=== PATIENT | male | born 1940 ===

== ENCOUNTER 2020-07-12 22:46 | Inpatient (IN) ==
[2020-07-13 09:03] LABS: Hematocrit 40.8 % (42.0-52.0); Hemoglobin 13.3 gm/dL (13.5-18.0); Mean Cell Volume 100.2 fl (78-100); Mean Corpuscular Hemoglobin 32.7 pg (27-31); Mean Corpuscular Hgb Conc 32.6 g/dl (32-36); Mean Platelet Volume 10.5 fl (8-11.3); Neutrophil # 5.9 K/mm3 (1.3-6.0); Neutrophil % 87.6 % (42-75.0); Platelet Count 159 K/mm3 (150-450); Red Blood Count 4.07 M/mm3 (4.7-6.0); White Blood Count 6.8 K/mm3 (4.0-10.5)
[2020-07-13] MEDS: ASPIRIN 81 MG TABLET.DR PO SCH (09:04)
[2020-07-13] MEDS: ENOXAPARIN SODIUM 80 MG/0.8 ML DISP.SYRIN SC SCH ×2 (09:04→19:50)
[2020-07-13] MEDS: DEXAMETHASONE SODIUM PHOSP/PF 10 MG/ML VIAL IV SCH (09:04)
[2020-07-13] MEDS: PANTOPRAZOLE SODIUM 40 MG TABLET.EC PO SCH (09:04)
[2020-07-13 09:14] LABS: Albumin * 2.4 gm/dl (3.4-5.0); Anion Gap 12.2 mmol/L (6.8-13.8); Bilirubin, Total 0.7 mg/dL (0.0-1.1); Ca. Corrected For Albumin 8.9 mg/dL (8.4-10.2); Calcium * 7.9 mg/dL (7.9-10.9); Carbon Dioxide 25.7 mmol/L (24-32.6); Potassium 3.9 mmol/L (3.4-4.6); Total Protein 6.2 gm/dL (6.2-8.2)
[2020-07-13] MEDS: ONDANSETRON HCL/PF 2 MG/ML VIAL IV PRN (15:05)
--- NOTE | 2020-07-13 18:31 | HP ---
Chief Complaint - Chief Complaint Date of Service: 07/13/20 Time of Service: 18:31 History of Present Illness: 80 year old male with 3 day hx of shortness of breath presented to the ER in [place] where he was found to have COVID [address] consistent with multifocal PNA seen with COVID 19. He has AAA hx that was examined on CT, unchanged. He was started on lovenox and decadron. He was requiring 15 L high flow O2 to maintain sats. There were no beds available in [place] so he was tx here. Rest of his lab work was unremarklable there. He was admitted to the [facility] as an inpatient. He endorses SOB, cough. He denied fevers. Medical History (Last Updated 07/12/20 @ 23:50 by Makenzie Sarabia RN) AAA (abdominal aortic aneurysm) Anemia Bacterial overgrowth syndrome Barretts esophagus Calculus of kidney Degenerative arthritis GERD (gastroesophageal reflux disease) Gout High blood pressure Obesity Osteoporosis Pure hypercholesterolemia Venous insufficiency Vitamin B12 deficiency Surgical History: Surgical History (Last Updated 07/12/20 @ 23:56 by Makenzie Sarabia RN) H/O bilateral inguinal hernia repair H/O colonoscopy with biopsies H/O umbilical hernia repair History of cholecystectomy History of esophagogastroduodenoscopy with biopsies History of vasectomy Positive lactulose breath hydrogen test S/P AAA repair using bifurcation graft S/P repair of ventral hernia Family History: Family History (Last Updated 07/12/20 @ 23:59 by Makenzie Sarabia RN) Sister Cancer Father Diabetes Mother CVA (cerebral vascular accident) Social History: (Last Updated 07/13/20 @ 00:02 by Makenzie Sarabia RN) Social History: lives independently: Yes Tobacco: Smoking Status: Former smoker Alcohol: alcohol intake: never Substance Use: substance use type: does not use Review Of Systems (GEN) - Review of Systems Generalized/Overall Review: Present: Chills. Absent: Weakness, Fever EENTM: Present: No Symptoms Reported Respiratory: Present: Cough, Shortness of Breath. Absent: Wheezing Cardiac: Present: No Symptoms Reported Abdominal: Present: No Symptoms Reported Genitourinary: Present: No Symptoms Reported Musculoskeletal: Present: No Symptoms Reported Skin: Present: No Symptoms Reported Endocrine: Present: No Symptoms Reported Allergies/Adverse Reactions: Allergies Allergy/AdvReac Type Severity Reaction Status Date / Time pneumococcal vaccine Allergy Hives Verified 07/12/20 23:36 Home Medications: HOME MEDICATIONS Allopurinol [Zyloprim] 300 mg PO DAILY 07/12/20 [Last Taken Unknown] Amlodipine Besylate 5 mg PO DAILY 07/12/20 [Last Taken Unknown] Aspirin [Aspirin EC] 81 mg PO DAILY 07/12/20 [Last Taken Unknown] Cholecalciferol (Vitamin D3) [Vitamin D3] 1,000 unit PO DAILY 07/12/20 [Last Taken Unknown] Cyanocobalamin (Vitamin B-12) [Vitamin B-12] 1,000 mcg PO DAILY 07/12/20 [Last Taken Unknown] Doxycycline Monohydrate 100 mg PO BID 07/12/20 [Last Taken Unknown] Esomeprazole Magnesium [Nexium] 40 mg PO DAILY 07/12/20 [Last Taken Unknown] Nortriptyline HCl [Pamelor] 25 mg PO PRN PRN 07/12/20 [Last Taken Unknown] Exam - Exam Vital Signs: Vital Signs - Last Taken Temp 36.7 C 07/13/20 17:43 Pulse 81 07/13/20 17:43 Resp 18 07/13/20 17:43 BP 146/73 07/13/20 17:43 Pulse Ox 92 L 07/13/20 17:43 Constitutional: Present: Alert, Oriented x3, Cooperative, Elderly ENT Exam: Present: hearing grossly normal. Absent: nasal congestion, nasal drainage Eye Exam: bilateral eye: normal inspection, EOMI Neck: Present: non-tender, supple Respiratory: Present: lungs clear, normal breath sounds, no respiratory distress Cardiovascular/Chest: Present: regular rate, rhythm, no murmur Abdomen: Present: soft, nontender, nondistended Skin Exam: Present: normal color, warm/dry Appearance: Present: appropriate appearance, appropriate insight Eye contact: Present: cooperative, good eye contact Thoughts: Present: normal thought pattern, normal mood /affect Diagnostic Studies: Abnormal Lab Results 07/13/20 07/13/20 Range/Units 08:53 08:53 RBC 4.07 L (4.7-6.0) M/mm3 Hgb 13.3 L (13.5-18.0) gm/dL Hct 40.8 L (42.0-52.0) % MCV 100.2 H (78-100) fl MCH 32.7 H (27-31) pg Immature Gran % (Auto) 1.00 H (0.001-0.429) % Immature Gran # (Auto) 0.07 H (0.000-0.0310) K/mm3 Neutrophils % 87.6 H (42-75.0) % Lymphocytes % 7.8 L (20-51) % Lymphocytes # 0.53 L (1.5-3.5) k/mm3 BUN/Creatinine Ratio 28.0 H (9.0-21.6) Random Glucose 129 H (70-110) mg/dL Alkaline Phosphatase 42 L (50-170) U/L Albumin 2.4 L (3.4-5.0) gm/dl Laboratory Results WBC 6.8 K/mm3 (4.0-10.5) 07/13/20 08:53 RBC 4.07 M/mm3 (4.7-6.0) L 07/13/20 08:53 Hgb 13.3 gm/dL (13.5-18.0) L 07/13/20 08:53 Hct 40.8 % (42.0-52.0) L 07/13/20 08:53 MCV 100.2 fl (78-100) H 07/13/20 08:53 MCH 32.7 pg (27-31) H 07/13/20 08:53 MCHC 32.6 g/dl (32-36) 07/13/20 08:53 RDW 14.0 % (11.5-14.0) 07/13/20 08:53 Plt Count 159 K/mm3 (150-450) 07/13/20 08:53 MPV 10.5 fl (8-11.3) 07/13/20 08:53 Immature Gran % (Auto) 1.00 % (0.001-0.429) H 07/13/20 08:53 Immature Gran # (Auto) 0.07 K/mm3 (0.000-0.0310) H 07/13/20 08:53 Neutrophils % 87.6 % (42-75.0) H 07/13/20 08:53 Lymphocytes % 7.8 % (20-51) L 07/13/20 08:53 Monocytes % 3.5 % (0.0-9) 07/13/20 08:53 Eosinophils % 0.0 % (0.0-3.0) 07/13/20 08:53 Basophils % 0.1 % (0.0-1.0) 07/13/20 08:53 Nucleated RBC % 0.0 k/mm3 (0-1) 07/13/20 08:53 Neutrophils # 5.9 K/mm3 (1.3-6.0) 07/13/20 08:53 Lymphocytes # 0.53 k/mm3 (1.5-3.5) L 07/13/20 08:53 Monocytes # 0.2 k/mm3 (0.0-1.0) 07/13/20 08:53 Eosinophils # 0.0 k/mm3 (0.0-0.7) 07/13/20 08:53 Absolute Basophils 0.0 k/mm3 (0.0-0.1) 07/13/20 08:53 Sodium 139 mmol/L (132-142) 07/13/20 08:53 Plasma Sodium 139 mmol/L (130-142) 07/13/20 08:53 Potassium 3.9 mmol/L (3.4-4.6) 07/13/20 08:53 Chloride 105 mmol/L (97-106) 07/13/20 08:53 Carbon Dioxide 25.7 mmol/L (24-32.6) 07/13/20 08:53 Anion Gap 12.2 mmol/L (6.8-13.8) 07/13/20 08:53 BUN 23 mg/dL (6-23) 07/13/20 08:53 Creatinine 0.82 mg/dL (0.4-1.4) 07/13/20 08:53 Est GFR (Non-Af Amer) 96 mL/min (60-130) 07/13/20 08:53 BUN/Creatinine Ratio 28.0 (9.0-21.6) H 07/13/20 08:53 Random Glucose 129 mg/dL (70-110) H 07/13/20 08:53 Calcium 7.9 mg/dL (7.9-10.9) 07/13/20 08:53 Calcium Adj for Albumin 8.9 mg/dL (8.4-10.2) 07/13/20 08:53 Total Bilirubin 0.7 mg/dL (0.0-1.1) 07/13/20 08:53 AST 33 U/L (0-48) 07/13/20 08:53 ALT 22 U/L (19-67) 07/13/20 08:53 Alkaline Phosphatase 42 U/L (50-170) L 07/13/20 08:53 Total Protein 6.2 gm/dL (6.2-8.2) 07/13/20 08:53 Albumin 2.4 gm/dl (3.4-5.0) L 07/13/20 08:53 Assessment/Plan - Narrative Narrative: Admitted to [facility] as inpatient for COVID 19 PNA. Continue decadron and lovenox. Patient currently sating well on low flow o2, being weaned. Will continue to monitor. VItals are stable and he has been afebrile. Restarted home meds. HTN and GERD stable. AAA unchanged per CT report. Repeat CBC and CMP in am. Cont current tx plan. Nurse to call with questions or concerns. - Assessment/Plan (1) COVID-19 Problem: Acute (2) AAA (abdominal aortic aneurysm) Problem: Acute (3) Hypoxia Problem: Acute (4) HTN (hypertension) Problem: Acute (5) GERD (gastroesophageal reflux disease) Problem: Acute
[2020-07-13] MEDS ORDERED: ACETAMINOPHEN 500 MG TABLET PO PRN (19:39)
[2020-07-13] MEDS: KETOROLAC TROMETHAMINE 30 MG/ML VIAL IV PRN (19:50)
[2020-07-13] MEDS ORDERED: FAMOTIDINE 20 MG TABLET PO SCH (23:45)
[2020-07-13] MEDS ORDERED: BISACODYL 5 MG TABLET.DR PO ONE (23:56)
[2020-07-14] MEDS: KETOROLAC TROMETHAMINE 30 MG/ML VIAL IV PRN (03:00)
[2020-07-14] MEDS: PANTOPRAZOLE SODIUM 40 MG TABLET.EC PO SCH (06:40)
[2020-07-14 06:46] LABS: Hematocrit 40.5 % (42.0-52.0); Hemoglobin 13.2 gm/dL (13.5-18.0); Mean Cell Volume 102.8 fl (78-100); Mean Corpuscular Hemoglobin 33.5 pg (27-31); Mean Corpuscular Hgb Conc 32.6 g/dl (32-36); Mean Platelet Volume 11.1 fl (8-11.3); Platelet Count 199 K/mm3 (150-450); Red Blood Count 3.94 M/mm3 (4.7-6.0); Red Cell Distribution Width 14.1 % (11.5-14.0); White Blood Count 12.3 K/mm3 (4.0-10.5)
[2020-07-14 06:59] LABS: Albumin * 2.3 gm/dl (3.4-5.0); Anion Gap 8.6 mmol/L (6.8-13.8); BUN/Creatinine Ratio 39.3 (9.0-21.6); Bilirubin, Total 0.6 mg/dL (0.0-1.1); Ca. Corrected For Albumin 9.3 mg/dL (8.4-10.2); Calcium * 8.3 mg/dL (7.9-10.9); Carbon Dioxide 29.3 mmol/L (24-32.6); Potassium 3.9 mmol/L (3.4-4.6)
[2020-07-14 07:05] LABS: Total Cells Counted 100
[2020-07-14 07:07] LABS: Band 1 % (0-2.0); Giant Platelets Trace; Immature Granulocyte 3 (0-1); Lymphocyte 4 % (20-51); Monocyte 3 % (0-9); Neutrophil 89 % (42-75); Neutrophil # 10.9 K/mm3 (1.3-6.0)
[2020-07-14] MEDS: ENOXAPARIN SODIUM 80 MG/0.8 ML DISP.SYRIN SC SCH ×2 (09:22→21:09)
[2020-07-14] MEDS: DEXAMETHASONE SODIUM PHOSP/PF 10 MG/ML VIAL IV SCH (09:22)
[2020-07-14] MEDS: ASPIRIN 81 MG TABLET.DR PO SCH (09:24)
[2020-07-14] MEDS: POTASSIUM CHLORIDE 20 MEQ in DEXTROSE 5%-0.5 NORMAL SALINE 990 ML IV SCH (11:23)
[2020-07-14] MEDS: BENZOCAINE/MENTHOL 16 EACH BOX MM PRN ×3 (14:35→18:33)
--- NOTE | 2020-07-14 23:42 | PN ---
Subjective - Date and Time Seen Date: 07/14/20 Time: 11:00 Subjective Narrative: Walt began having worsening abdominal pain and distension overnight, xray showed bowel obstruction vs ileus. NG was placed and confirmed by repeat imaging. NG was placed to continuous suction and removed about 700ml of brown material. He immediately felt an improvement in his symptoms. He has not urinated but does not feel the urge. Roth was removed yesterday. He reports shortness of breath is improving. He was on 15lpm last night and is down to 10lpm via high flow NC today. His mouth is dry but otherwise he is feeling better today. Objective - Vitals Vitals: Last Vital Signs Temp 36.6 C 07/14/20 21:25 Pulse 74 07/14/20 21:25 Resp 18 07/14/20 21:25 BP 134/78 07/14/20 21:25 Pulse Ox 94 07/14/20 22:15 - Abnormal Lab Findings Abnormal Lab Findings: Abnormal Lab Results 07/14/20 07/14/20 Range/Units 06:40 06:40 WBC 12.3 H D (4.0-10.5) K/mm3 RBC 3.94 L (4.7-6.0) M/mm3 Hgb 13.2 L (13.5-18.0) gm/dL Hct 40.5 L (42.0-52.0) % MCV 102.8 H (78-100) fl MCH 33.5 H (27-31) pg RDW 14.1 H (11.5-14.0) % Neutrophils % (Manual) 89 H (42-75) % Lymphocytes % (Manual) 4 L (20-51) % Immature Granulocytes 3 H (0-1) Neutrophils # (Manual) 10.9 H (1.3-6.0) K/mm3 Lymphocytes # (Manual) 0.5 L (1.5-3.5) k/mm3 BUN 48 H D (6-23) mg/dL BUN/Creatinine Ratio 39.3 H (9.0-21.6) Random Glucose 134 H (70-110) mg/dL Alkaline Phosphatase 44 L (50-170) U/L Total Protein 6.0 L (6.2-8.2) gm/dL Albumin 2.3 L (3.4-5.0) gm/dl - Exam Constitutional: Present: Alert, Oriented x3, Cooperative, No distress ENT Exam: Present: hearing grossly normal Respiratory: Present: lungs clear, normal breath sounds Cardiovascular/Chest: Present: regular rate, rhythm, no edema, no murmur Abdomen: Present: soft, tender - mild diffuse, hypoactive Extremity: Present: normal inspection, no pedal edema, normal capillary refill Skin Exam: Present: normal color, warm/dry, no cyanosis Neurologic: Present: alert, normal mood/affect, oriented x 3 Appearance: Present: appropriate appearance, appropriate insight Assessment/Plan Plan Narrative: Walt is an 80 yo male with: 1) Acute respiratory failure with hypoxia secondary to COVID-19 pneumonia. This is improved today with him being weaned from 15lpm down to 10lpm, continue to wean. 2) Small bowel obstruction. Unclear etiology, potential from decreased mobility and prior surgeries. He is feeling better after NG tube. No bowel movement since Thanksgiving. He is on IV fluids for maintenance, NPO status, continue suction with NG tube. If pain stays away and GI motility improves may clamp NG tube and advance diet. 3) Urinary retention. Starting IV fluids as he is NPO will see if this helps with urine output. He has no sensation of needing to urinate at this time. Will monitor. May need to bladder scan if still no retention. Holding off on roth unless needed. - Problems/Diagnosis (1) Acute respiratory failure due to COVID-19 Problem: Acute (2) COVID-19 Problem: Acute (3) Small bowel obstruction Problem: Acute (4) Urinary retention Problem: Acute
[2020-07-15] MEDS: POTASSIUM CHLORIDE 20 MEQ in DEXTROSE 5%-0.5 NORMAL SALINE 990 ML IV SCH ×2 (01:20→15:34)
[2020-07-15] MEDS: BENZOCAINE/MENTHOL 16 EACH BOX MM PRN ×4 (01:36→15:19)
[2020-07-15 06:28] LABS: Hematocrit 40.1 % (42.0-52.0); Hemoglobin 12.9 gm/dL (13.5-18.0); Mean Cell Volume 104.7 fl (78-100); Mean Corpuscular Hemoglobin 33.7 pg (27-31); Mean Corpuscular Hgb Conc 32.2 g/dl (32-36); Platelet Count 145 K/mm3 (150-450); Red Blood Count 3.83 M/mm3 (4.7-6.0); Red Cell Distribution Width 14.1 % (11.5-14.0); White Blood Count 11.1 K/mm3 (4.0-10.5)
[2020-07-15 06:31] LABS: Total Cells Counted 100
[2020-07-15 06:46] LABS: Albumin * 2.3 gm/dl (3.4-5.0); Anion Gap 12.9 mmol/L (6.8-13.8); BUN/Creatinine Ratio 52.4 (9.0-21.6); Bilirubin, Total 0.7 mg/dL (0.0-1.1); Ca. Corrected For Albumin 8.7 mg/dL (8.4-10.2); Calcium * 7.7 mg/dL (7.9-10.9); Carbon Dioxide 28.5 mmol/L (24-32.6); Potassium 4.4 mmol/L (3.4-4.6); Total Protein 5.7 gm/dL (6.2-8.2)
[2020-07-15 06:57] LABS: Lymphocyte 6 % (20-51); Monocyte 2 % (0-9); Neutrophil 92 % (42-75); Neutrophil # 10.2 K/mm3 (1.3-6.0)
[2020-07-15 07:01] LABS: Giant Platelets Trace; Platelet Estimate Normal (NORMAL)
[2020-07-15 07:02] LABS: Toxic Granulation Trace
[2020-07-15] MEDS: ENOXAPARIN SODIUM 80 MG/0.8 ML DISP.SYRIN SC SCH ×2 (07:57→19:49)
[2020-07-15] MEDS: PANTOPRAZOLE SODIUM 40 MG TABLET.EC PO SCH (07:57)
[2020-07-15] MEDS: DEXAMETHASONE SODIUM PHOSP/PF 10 MG/ML VIAL IV SCH (08:00)
[2020-07-15] MEDS: ASPIRIN 81 MG TABLET.DR PO SCH (08:00)
--- NOTE | 2020-07-15 17:07 | PN ---
Subjective - Date and Time Seen Date: 07/15/20 Time: 16:57 Subjective Narrative: Patient is resting comfortably in bed. NG tube still in place, set low intermittent suction. Significant gastric contents removed today be NG tube. Patient with minimal abdominal discomfort. Patient does endorse some throat pain. Otherwise denies shortness of breath though he has required an escalation of his high flow rate oxygen in order to maintain sats appropriately. Vital si gns been stable otherwise and he is afebrile. Objective - Review of Systems Generalized/Overall Review: Denies: Weakness, Chills, Fever EENTM: Reports: No Symptoms Reported Respiratory: Reports: Cough. Denies: Shortness of Breath Cardiac: Reports: No Symptoms Reported Abdominal: Reports: Nausea, Abdominal Pain, Constipation. Denies: Vomiting Genitourinary Symptoms: Reports: No Symptoms Reported. Denies: Retention Neurological: Reports: No Symptoms Reported Skin: Reports: No Symptoms Reported - Vitals Vitals: Last Vital Signs Temp 36.8 C 07/15/20 15:00 Pulse 79 07/15/20 15:00 Resp 24 H 07/15/20 15:00 BP 157/87 H 07/15/20 15:00 Pulse Ox 96 07/15/20 15:00 - Abnormal Lab Findings Abnormal Lab Findings: Abnormal Lab Results 07/15/20 07/15/20 Range/Units 06:20 06:20 WBC 11.1 H (4.0-10.5) K/mm3 RBC 3.83 L (4.7-6.0) M/mm3 Hgb 12.9 L (13.5-18.0) gm/dL Hct 40.1 L (42.0-52.0) % MCV 104.7 H (78-100) fl MCH 33.7 H (27-31) pg RDW 14.1 H (11.5-14.0) % Plt Count 145 L (150-450) K/mm3 MPV 12.0 H (8-11.3) fl Neutrophils % (Manual) 92 H (42-75) % Lymphocytes % (Manual) 6 L (20-51) % Neutrophils # (Manual) 10.2 H (1.3-6.0) K/mm3 Lymphocytes # (Manual) 0.7 L (1.5-3.5) k/mm3 Sodium 144 H (132-142) mmol/L Plasma Sodium 144 H (130-142) mmol/L Chloride 107 H (97-106) mmol/L BUN 44 H (6-23) mg/dL BUN/Creatinine Ratio 52.4 H (9.0-21.6) Calcium 7.7 L (7.9-10.9) mg/dL Alkaline Phosphatase 46 L (50-170) U/L Total Protein 5.7 L (6.2-8.2) gm/dL Albumin 2.3 L (3.4-5.0) gm/dl - Exam Constitutional: Present: Alert, Oriented x3, Cooperative, Elderly ENT Exam: Present: other - NG tube in place, flow oxygen in place Neck: Present: non-tender, supple Respiratory: Present: lungs clear, normal breath sounds, decreased breath sounds - In the bases bilaterally. Absent: rhonchi, wheezing Cardiovascular/Chest: Present: regular rate, rhythm, no murmur Abdomen: Present: soft, tender - Mildly diffusely tender. Absent: guarding, rigidity Skin Exam: Present: normal color, warm/dry Appearance: Present: appropriate appearance, appropriate insight Eye contact: Present: cooperative, good eye contact Thoughts: Present: normal thought pattern, normal mood /affect Assessment/Plan - Problems/Diagnosis (1) COVID-19 Problem: Acute Narrative: Continue with high flow oxygen, titrate to appropriate settings maintain sats greater than 92%. We will continue to monitor. Patient is on Decadron and Lovenox. Patient had a bump in his white count from admission though this likely due to the Decadron. It lower today. No reason to start on antibiotics at this time but will continue to monitor. (2) AAA (abdominal aortic aneurysm) Problem: Acute Narrative: Stable (3) Hypoxia Problem: Acute Narrative: Stable with high flow oxygen, titration and weaning orders placed (4) HTN (hypertension) Problem: Acute Narrative: Stable, no changes to treatment plan (5) GERD (gastroesophageal reflux disease) Problem: Acute (6) Small bowel obstruction Problem: Acute Narrative: Appears to be resolving with NG tube placement set to low intermittent suction. Will leave in overnight 1 more time as he still pulling out significant amount of gastric fluid though he feels much better. Tomorrow will likely clamp the tube and do trial of clears to see how he tolerates it. (7) Urinary retention Problem: Resolved Narrative: This has appeared to resolve
[2020-07-16] MEDS: POTASSIUM CHLORIDE 20 MEQ in DEXTROSE 5%-0.5 NORMAL SALINE 990 ML IV SCH ×2 (05:56→19:54)
[2020-07-16 06:38] LABS: Hematocrit 40.6 % (42.0-52.0); Hemoglobin 12.9 gm/dL (13.5-18.0); Mean Cell Volume 103.3 fl (78-100); Mean Corpuscular Hemoglobin 32.8 pg (27-31); Mean Corpuscular Hgb Conc 31.8 g/dl (32-36); Mean Platelet Volume 10.1 fl (8-11.3); Platelet Count 270 K/mm3 (150-450); Red Blood Count 3.93 M/mm3 (4.7-6.0); Red Cell Distribution Width 13.9 % (11.5-14.0); White Blood Count 10.1 K/mm3 (4.0-10.5)
[2020-07-16 06:43] LABS: Total Cells Counted 100
[2020-07-16 06:52] LABS: Albumin * 2.5 gm/dl (3.4-5.0); Anion Gap 10.6 mmol/L (6.8-13.8); BUN/Creatinine Ratio 37.1 (9.0-21.6); Bilirubin, Total 1.2 mg/dL (0.0-1.1); Ca. Corrected For Albumin 8.9 mg/dL (8.4-10.2); Carbon Dioxide 27.5 mmol/L (24-32.6); Potassium 4.1 mmol/L (3.4-4.6); Total Protein 6.5 gm/dL (6.2-8.2)
[2020-07-16] MEDS: PANTOPRAZOLE SODIUM 40 MG TABLET.EC PO SCH (07:06)
[2020-07-16 07:22] LABS: Band 1 % (0-2.0); Giant Platelets Trace; Lymphocyte 5 % (20-51); Monocyte 2 % (0-9); Neutrophil 92 % (42-75); Neutrophil # 9.3 K/mm3 (1.3-6.0); Platelet Estimate Normal (NORMAL); RBC Morphology Normal (NORMAL)
[2020-07-16] MEDS: ENOXAPARIN SODIUM 80 MG/0.8 ML DISP.SYRIN SC SCH ×2 (08:31→19:54)
[2020-07-16] MEDS: ASPIRIN 81 MG TABLET.DR PO SCH (08:32)
[2020-07-16] MEDS: DEXAMETHASONE SODIUM PHOSP/PF 10 MG/ML VIAL IV SCH (08:32)
--- NOTE | 2020-07-16 19:45 | PN ---
Subjective - Date and Time Seen Date: 07/16/20 Time: 19:45 Subjective Narrative: Patient is resting much more comfortable today. He was able to tolerate clears well and his diet was advanced. He denies abdominal pain today and states he is passing gas. He has not had a bowel movement. His vital signs are stable other than his oxygen demand. He has been afebrile. He is resting easy and states he feels like he is getting better each day. Objective - Review of Systems Generalized/Overall Review: Denies: Weakness, Chills, Fever EENTM: Reports: No Symptoms Reported Respiratory: Reports: Shortness of Breath. Denies: Cough Cardiac: Reports: No Symptoms Reported Abdominal: Reports: Constipation, Other - Denies obstipation. Denies: Nausea, Vomiting, Abdominal Pain Genitourinary Symptoms: Reports: No Symptoms Reported Neurological: Reports: No Symptoms Reported Skin: Reports: No Symptoms Reported Endocrine: Reports: No Symptoms Reported - Vitals Vitals: Last Vital Signs Temp 35.5 C L 07/16/20 19:00 Pulse 76 07/16/20 19:00 Resp 20 07/16/20 19:00 BP 148/78 07/16/20 19:00 Pulse Ox 100 07/16/20 19:00 - Abnormal Lab Findings Abnormal Lab Findings: Abnormal Lab Results 07/16/20 07/16/20 Range/Units 06:34 06:34 RBC 3.93 L (4.7-6.0) M/mm3 Hgb 12.9 L (13.5-18.0) gm/dL Hct 40.6 L (42.0-52.0) % MCV 103.3 H (78-100) fl MCH 32.8 H (27-31) pg MCHC 31.8 L (32-36) g/dl Neutrophils % (Manual) 92 H (42-75) % Lymphocytes % (Manual) 5 L (20-51) % Neutrophils # (Manual) 9.3 H (1.3-6.0) K/mm3 Lymphocytes # (Manual) 0.5 L (1.5-3.5) k/mm3 Chloride 107 H (97-106) mmol/L BUN 33 H (6-23) mg/dL BUN/Creatinine Ratio 37.1 H (9.0-21.6) Total Bilirubin 1.2 H (0.0-1.1) mg/dL Alkaline Phosphatase 49 L (50-170) U/L Albumin 2.5 L (3.4-5.0) gm/dl - Exam Constitutional: Present: Alert, Oriented x3, Cooperative, Elderly ENT Exam: Present: normal ENT inspection, hearing grossly normal Neck: Present: non-tender, supple Respiratory: Present: lungs clear, decreased breath sounds - In the bases. Absent: stridor, wheezing Cardiovascular/Chest: Present: regular rate, rhythm, no murmur Abdomen: Present: Normal bowel sounds, soft, nontender, distended - Mildly. Absent: guarding, rigidity, rebound tenderness Extremity: Present: non-tender, normal inspection, no pedal edema Skin Exam: Present: normal color, warm/dry Appearance: Present: appropriate appearance, appropriate insight Eye contact: Present: cooperative, good eye contact Thoughts: Present: normal thought pattern, normal mood /affect Assessment/Plan - Problems/Diagnosis (1) COVID-19 Problem: Acute Narrative: Continue high flow oxygen as needed, will wean to baseline as tolerated. Patient on Lovenox and Decadron. Patient stable and doing well (2) AAA (abdominal aortic aneurysm) Problem: Acute (3) Hypoxia Problem: Acute Narrative: Stable, satting well on high flow oxygen. Added John use to his treatment plan (4) HTN (hypertension) Problem: Acute Narrative: Well controlled (5) GERD (gastroesophageal reflux disease) Problem: Acute (6) Small bowel obstruction Problem: Resolved Narrative: Appears to have resolved, currently advancing diet. Patient has not a bowel movement but is passing gas and denies abdominal pain. NG tube is pulled (7) Urinary retention Problem: Resolved Narrative: Patient urinating just fine, no longer retaining.
[2020-07-17] MEDS: PANTOPRAZOLE SODIUM 40 MG TABLET.EC PO SCH (06:40)
[2020-07-17] MEDS: ENOXAPARIN SODIUM 80 MG/0.8 ML DISP.SYRIN SC SCH ×2 (09:14→21:29)
[2020-07-17] MEDS: ASPIRIN 81 MG TABLET.DR PO SCH (09:14)
[2020-07-17] MEDS: DEXAMETHASONE SODIUM PHOSP/PF 10 MG/ML VIAL IV SCH (09:15)
[2020-07-17] MEDS: POTASSIUM CHLORIDE 20 MEQ in DEXTROSE 5%-0.5 NORMAL SALINE 990 ML IV SCH (09:16)
[2020-07-17 10:11] LABS: Venous Blood Gas HCO3 24.8 mmol/L (22.0-29.0); Venous Blood Gas pH 7.4 (7.32-7.43)
--- NOTE | 2020-07-17 17:26 | PN ---
Subjective - Date and Time Seen Date: 07/17/20 Time: 17:26 Subjective Narrative: Patient states he feels well. Denies abdominal pain. Does have SOB. Vitals are stable aside from hypoxia and no acute events overnight. Still has not had a BM. Still requiring high flow o2 to maintain sats. Objective - Review of Systems Generalized/Overall Review: Denies: Weakness, Chills, Fever EENTM: Reports: No Symptoms Reported Respiratory: Reports: Shortness of Breath. Denies: Cough Cardiac: Reports: No Symptoms Reported Abdominal: Reports: Constipation, Other - passing gas. Denies: Nausea, Vomiting, Hematemesis, Abdominal Pain Genitourinary Symptoms: Reports: No Symptoms Reported Musculoskeletal Complaints: Reports: No Symptoms Reported Neurological: Reports: No Symptoms Reported Skin: Reports: No Symptoms Reported - Vitals Vitals: Last Vital Signs Temp 36.3 C 07/17/20 13:00 Pulse 90 07/17/20 13:00 Resp 20 07/17/20 13:00 BP 143/79 07/17/20 13:00 Pulse Ox 99 07/17/20 13:00 - Abnormal Lab Findings Abnormal Lab Findings: Abnormal Lab Results 07/17/20 07/17/20 Range/Units 10:04 10:04 Total CO2 26.1 H (22.0-26.0) mmol/L VBG O2 Saturation 66.3 L (94.0-98.0) % Procalcitonin Less than 0.05 L (0.05-0.50) ng/mL - Exam Constitutional: Present: Alert, Oriented x3, Cooperative, Elderly ENT Exam: Present: hearing grossly normal Neck: Present: non-tender, supple Respiratory: Present: lungs clear, decreased breath sounds - bases bilat Cardiovascular/Chest: Present: regular rate, rhythm, no murmur Abdomen: Present: soft, nontender, distended - minimal. Absent: guarding, rigidity Extremity: Absent: leg pain, pedal edema Skin Exam: Present: normal color, warm/dry Appearance: Present: appropriate appearance, appropriate insight Eye contact: Present: cooperative, good eye contact Thoughts: Present: normal thought pattern, normal mood /affect Assessment/Plan - Problems/Diagnosis (1) COVID-19 Problem: Acute Narrative: Patient on appropriate meds. Does not meet requirement for antiviral. COntinue high flow o2 to maintain sats. cont lovenox and decadron. VBG wnl. (2) AAA (abdominal aortic aneurysm) Problem: Acute (3) Hypoxia Problem: Acute (4) HTN (hypertension) Problem: Acute (5) GERD (gastroesophageal reflux disease) Problem: Acute (6) Small bowel obstruction Problem: Resolved Narrative: Repeat abd KUB shows no signs of obstruction. Passing gas. Will try enema. Labs all stable, appropriate. (7) Urinary retention Problem: Resolved
[2020-07-18] MEDS: POTASSIUM CHLORIDE 20 MEQ in DEXTROSE 5%-0.5 NORMAL SALINE 990 ML IV SCH ×2 (01:11→15:05)
[2020-07-18] MEDS: PANTOPRAZOLE SODIUM 40 MG TABLET.EC PO SCH (07:36)
[2020-07-18] MEDS: ASPIRIN 81 MG TABLET.DR PO SCH (08:57)
[2020-07-18] MEDS: ENOXAPARIN SODIUM 80 MG/0.8 ML DISP.SYRIN SC SCH ×2 (08:57→21:20)
[2020-07-18] MEDS: DEXAMETHASONE SODIUM PHOSP/PF 10 MG/ML VIAL IV SCH (08:57)
--- NOTE | 2020-07-18 17:34 | PN ---
Subjective - Date and Time Seen Date: 07/18/20 Time: 17:26 Subjective Narrative: Overall Walt feels well though he he had a decline in his respiratory status requiring CPAP to maintain sats. Patient's main issue is he is not taking deep breaths, he is not moving much. Besides his sats his vital signs been stable has been afebrile. Patient denies abdominal pain though he has not had a bowel movement yet. He has active bowel sounds. Objective - Review of Systems Generalized/Overall Review: Denies: Weakness, Chills, Fever EENTM: Reports: No Symptoms Reported Respiratory: Reports: Shortness of Breath. Denies: Cough Cardiac: Denies: Chest Pain, Edema Abdominal: Reports: Constipation, Other - Passing gas. Denies: Nausea, Vomiting, Abdominal Pain Genitourinary Symptoms: Reports: No Symptoms Reported Musculoskeletal Complaints: Reports: Back Pain Neurological: Reports: No Symptoms Reported Skin: Reports: No Symptoms Reported - Vitals Vitals: Last Vital Signs Temp 36.8 C 07/18/20 15:00 Pulse 72 07/18/20 17:10 Resp 27 H 07/18/20 17:10 BP 132/76 07/18/20 15:00 Pulse Ox 97 07/18/20 17:10 - Exam Constitutional: Present: Alert, Oriented x3, Cooperative, No distress ENT Exam: Present: hearing grossly normal. Absent: nasal congestion, nasal drainage Neck: Present: non-tender, supple Respiratory: Present: lungs clear, decreased breath sounds - Bilateral bases. Absent: rhonchi, wheezing Cardiovascular/Chest: Present: normal peripheral pulses, regular rate, rhythm, no murmur Abdomen: Present: Normal bowel sounds, soft, nontender, distended - Mildly dis tended but not uncomfortable Skin Exam: Present: normal color, warm/dry Neurologic: Present: no motor/sensory deficits, alert, oriented x 3. Absent: motor weakness Appearance: Present: appropriate appearance, appropriate insight Thoughts: Present: normal thought pattern, normal mood /affect Assessment/Plan - Problems/Diagnosis (1) COVID-19 Problem: Acute Narrative: Overall patient feels well though he is requiring CPAP currently set at 10 with 55% O2 been administered. Patient denies respiratory distress. Patient maintaining sats in the upper 90s with CPAP but when he takes it off to eat he drops into the mid 80s on high flow oxygen at 15 L. Patient is not using his John that has been ordered for which we discussed in detail again this evening. Patient is not wanting to get out of bed much due to back pain which we may need to address with pain medicine tomorrow but will order physical therapy first to see if that does not help him move more. (2) AAA (abdominal aortic aneurysm) Problem: Chronic Narrative: Stable (3) Hypoxia Problem: Acute Narrative: Resolved while on CPAP currently (4) HTN (hypertension) Problem: Acute Narrative: Well controlled, no changes (5) GERD (gastroesophageal reflux disease) Problem: Chronic (6) Small bowel obstruction Problem: Resolved (7) Urinary retention Problem: Resolved
[2020-07-19] MEDS: POTASSIUM CHLORIDE 20 MEQ in DEXTROSE 5%-0.5 NORMAL SALINE 990 ML IV SCH ×2 (05:36→19:34)
[2020-07-19] MEDS: PANTOPRAZOLE SODIUM 40 MG TABLET.EC PO SCH (06:41)
[2020-07-19] MEDS: ENOXAPARIN SODIUM 80 MG/0.8 ML DISP.SYRIN SC SCH ×2 (08:46→22:02)
[2020-07-19] MEDS: DEXAMETHASONE SODIUM PHOSP/PF 10 MG/ML VIAL IV SCH (08:46)
[2020-07-19] MEDS: ASPIRIN 81 MG TABLET.DR PO SCH (08:46)
[2020-07-19] MEDS: ONDANSETRON HCL/PF 2 MG/ML VIAL IV PRN ×2 (17:08→22:16)
--- NOTE | 2020-07-19 17:46 | PN ---
Subjective - Date and Time Seen Date: 07/19/20 Time: 17:40 Subjective Narrative: Patient's breathing much improved today. No longer on CPAP. Satting well on only 10 L of high flow oxygen much improved to 15 L he was previously on before the CPAP. His vital signs been stable otherwise and he has been afebrile. Still having some abdominal pain though he is passing gas and has normal bowel sounds. He has not had a bowel mood last 2 days but states he is chronically constipated. He has no other concerns this time. Still on a full liquid diet. Objective - Review of Systems Generalized/Overall Review: Denies: Weakness, Chills, Fever EENTM: Reports: No Symptoms Reported Respiratory: Reports: Shortness of Breath. Denies: Cough Cardiac: Reports: No Symptoms Reported Abdominal: Reports: Abdominal Pain - Mild, left lower quadrant, Constipation. Denies: Nausea, Vomiting Genitourinary Symptoms: Reports: No Symptoms Reported Musculoskeletal Complaints: Reports: Back Pain Skin: Reports: No Symptoms Reported - Vitals Vitals: Last Vital Signs Temp 36.7 C 07/19/20 14:00 Pulse 93 07/19/20 14:00 Resp 18 07/19/20 14:00 BP 132/75 07/19/20 14:00 Pulse Ox 97 07/19/20 14:00 - Exam Constitutional: Present: Alert, Oriented x3, Cooperative, Elderly ENT Exam: Present: hearing grossly normal. Absent: nasal congestion, nasal drainage Neck: Present: non-tender, supple Respiratory: Present: lungs clear, decreased breath sounds - Bilateral bases. Absent: respiratory distress, crackles, stridor Abdomen: Present: Normal bowel sounds, soft, tender - Mildly tender left lower quadrant, no rebound or guarding Skin Exam: Present: normal color, warm/dry Neurologic: Present: alert, oriented x 3 Appearance: Present: appropriate appearance, appropriate insight Eye contact: Present: cooperative, good eye contact Thoughts: Present: normal thought pattern, normal mood /affect Assessment/Plan - Problems/Diagnosis (1) COVID-19 Problem: Acute Narrative: Respiratory status improved today compared to yesterday. Hopefully his turn the corner and she continue to improve on a daily basis. Continue Decadron, continue Lovenox. We will wean him off oxygen as tolerated. (2) AAA (abdominal aortic aneurysm) Problem: Chronic (3) Hypoxia Problem: Acute Narrative: See above (4) HTN (hypertension) Problem: Acute (5) GERD (gastroesophageal reflux disease) Problem: Chronic Narrative: Acid reflux appears to be acting up today, on Nexium. Normally well controlled on this, if continues to bother him we will give him a dose of IV Protonix but will wait on this at this time. (6) Small bowel obstruction Problem: Resolved Narrative: Left lower quadrant pain, mild compared to previous obstruction pain. Patient has normal bowel sounds throughout and his stomach is not rigid. I think this is likely more constipation issues than anything else, Fleet enema ordered again. Repeat KUB of the abdomen tomorrow if he pump and still operator but I think he will be okay. (7) Urinary retention Problem: Resolved (8) Constipation Problem: Chronic Qualifiers: Constipation type: slow transit constipation Qualified Code(s): K59.01 - Slow transit constipation
[2020-07-19] MEDS ORDERED: MAGNESIUM CITRATE 300 ML BTL PO ONE (20:18)
[2020-07-19] MEDS ORDERED: MAGNESIUM CITRATE 300 ML BTL ONE (22:01)
[2020-07-19] MEDS: PROMETHAZINE HCL 25 MG TABLET PO PRN (22:02)
[2020-07-20 02:03] LABS: Hematocrit 38.8 % (42.0-52.0); Hemoglobin 12.7 gm/dL (13.5-18.0); Mean Corpuscular Hemoglobin 32.7 pg (27-31); Mean Corpuscular Hgb Conc 32.7 g/dl (32-36); Mean Platelet Volume 9.8 fl (8-11.3); Platelet Count 476 K/mm3 (150-450); Red Blood Count 3.88 M/mm3 (4.7-6.0); White Blood Count 12.6 K/mm3 (4.0-10.5)
[2020-07-20 02:09] LABS: Total Cells Counted 100
[2020-07-20 02:16] LABS: Albumin * 2.1 gm/dl (3.4-5.0); BUN/Creatinine Ratio 24.1 (9.0-21.6); Bilirubin, Total 0.9 mg/dL (0.0-1.1); Ca. Corrected For Albumin 9.4 mg/dL (8.4-10.2); Calcium * 8.2 mg/dL (7.9-10.9); Carbon Dioxide 27.2 mmol/L (24-32.6); Potassium 4.2 mmol/L (3.4-4.6); Total Protein 6.7 gm/dL (6.2-8.2)
[2020-07-20 02:32] LABS: Band 2 % (0-2.0); Immature Granulocyte 1 (0-1); Lymphocyte 3 % (20-51); Monocyte 3 % (0-9); Neutrophil 91 % (42-75); Neutrophil # 11.5 K/mm3 (1.3-6.0)
[2020-07-20 02:33] LABS: Platelet Estimate Increased (NORMAL)
[2020-07-20 02:34] LABS: Giant Platelets Trace
[2020-07-20] MEDS: ENOXAPARIN SODIUM 80 MG/0.8 ML DISP.SYRIN SC SCH ×2 (08:36→20:39)
[2020-07-20] MEDS: DEXAMETHASONE SODIUM PHOSP/PF 10 MG/ML VIAL IV SCH (08:36)
[2020-07-20] MEDS: POTASSIUM CHLORIDE 20 MEQ in DEXTROSE 5%-0.5 NORMAL SALINE 990 ML IV SCH ×2 (09:12→23:18)
[2020-07-20] MEDS: PANTOPRAZOLE SODIUM 40 MG TABLET.EC PO SCH (09:48)
[2020-07-20] MEDS: ASPIRIN 81 MG TABLET.DR PO SCH (09:48)
--- NOTE | 2020-07-20 11:30 | PN ---
Subjective - Date and Time Seen Date: 07/20/20 Time: 10:45 Subjective Narrative: Patient had difficulty overnight with significant nausea, and NG tube was placed. Nausea has improved after approximately 500 mL of gastric output. His last bowel movement was last night after an enema. He did require CPAP again when he was having more significant discomfort. When NG tube was placed this was changed to high flow, and he is oxygenating well. Objective - Review of Systems Generalized/Overall Review: Reports: Weakness Respiratory: Reports: Shortness of Breath Cardiac: Denies: Edema Abdominal: Reports: Nausea. Denies: Constipation Genitourinary Symptoms: Reports: No Symptoms Reported - Vitals Vitals: Last Vital Signs Temp 37.4 C 07/20/20 07:26 Pulse 88 07/20/20 07:26 Resp 20 07/20/20 07:26 BP 145/81 07/20/20 07:26 Pulse Ox 97 07/20/20 07:26 - Abnormal Lab Findings Abnormal Lab Findings: Abnormal Lab Results 07/20/20 07/20/20 Range/Units 01:55 01:55 WBC 12.6 H (4.0-10.5) K/mm3 RBC 3.88 L (4.7-6.0) M/mm3 Hgb 12.7 L (13.5-18.0) gm/dL Hct 38.8 L (42.0-52.0) % MCH 32.7 H (27-31) pg Plt Count 476 H (150-450) K/mm3 Neutrophils % (Manual) 91 H (42-75) % Lymphocytes % (Manual) 3 L (20-51) % Neutrophils # (Manual) 11.5 H (1.3-6.0) K/mm3 Lymphocytes # (Manual) 0.4 L (1.5-3.5) k/mm3 Platelet Estimate Increased H (NORMAL) BUN/Creatinine Ratio 24.1 H (9.0-21.6) Random Glucose 123 H (70-110) mg/dL Albumin 2.1 L (3.4-5.0) gm/dl - Exam Constitutional: Present: Alert, Cooperative, Other - Appears uncomfortable, Elderly ENT Exam: Present: other - NG tube in left nare Respiratory: Present: normal breath sounds, no accessory muscle use, other - Oxygenating in the mid 90s on 15 L via high flow Cardiovascular/Chest: Present: regular rate, rhythm Abdomen: Present: Normal bowel sounds, soft, nontender Extremity: Absent: lower extremity edema Eye contact: Present: cooperative, good eye contact Assessment/Plan - Problems/Diagnosis (1) Acute respiratory failure due to COVID-19 Problem: Acute Narrative: This is day 8 of hospitalization and day 11 of symptoms. Continue daily dexamethasone. He is still requiring significant oxygen, currently 15 L via nasal cannula. He also required CPAP overnight. Anticipate his hospitalization will continue for greater than 2 additional midnights. He is alert and able to conversate. (2) Small bowel obstruction Problem: Suspected Narrative: With his significant nausea, and improvement after placement of an NG, suspect small bowel obstruction. He has been less mobile lately. X-rays were done, though they were not upright or decubitus, so unable to use those to help with small bowel obstruction diagnosis. He is not having abdominal pain currently, his abdomen is soft, and he is passing gas. His most recent BM was last night. He still is having drainage from the NG however. When this has stopped, can clamp the NG and introduce clear liquids. We will hold his p.o. aspirin and Protonix currently, and can potentially resume tomorrow. He is tolerating ice chips currently. (3) Hypoxia Problem: Acute Narrative: We will wean oxygen as tolerated, but currently is requiring 15 L via high flow. He required CPAP as recently as last night. (4) HTN (hypertension) Problem: Acute Narrative: Blood pressure is fine, with systolic readings in the 140s and 150s. (5) AAA (abdominal aortic aneurysm) Problem: Chronic
[2020-07-21] MEDS: PANTOPRAZOLE SODIUM 40 MG TABLET.EC PO SCH (06:43)
[2020-07-21] MEDS: DEXAMETHASONE SODIUM PHOSP/PF 10 MG/ML VIAL IV SCH (09:21)
[2020-07-21] MEDS: ENOXAPARIN SODIUM 80 MG/0.8 ML DISP.SYRIN SC SCH ×2 (09:23→20:39)
[2020-07-21] MEDS: ASPIRIN 81 MG TABLET.DR PO SCH (09:26)
--- NOTE | 2020-07-21 13:46 | PN ---
Subjective - Date and Time Seen Date: 07/21/20 Time: 11:00 Subjective Narrative: Patient feels like he's slowly getting better. Using 8L via NC. Denies abdominal pain, and is passing gas. No BM in the last day and a half. He's able to stand to urinate. Objective - Review of Systems Generalized/Overall Review: Denies: Fever Respiratory: Reports: Cough, Shortness of Breath Cardiac: Denies: Chest Pain, Edema Abdominal: Denies: Nausea, Abdominal Pain Genitourinary Symptoms: Reports: No Symptoms Reported Musculoskeletal Complaints: Reports: No Symptoms Reported - Vitals Vitals: Last Vital Signs Temp 36.6 C 07/21/20 10:25 Pulse 90 07/21/20 10:25 Resp 24 H 07/21/20 10:25 BP 128/73 07/21/20 10:25 Pulse Ox 96 07/21/20 10:25 - Exam Constitutional: Present: Alert, Cooperative, Elderly Respiratory: Present: normal breath sounds, no accessory muscle use, other - using 8L via NC, oxygenating in mid 90's Cardiovascular/Chest: Present: regular rate, rhythm Abdomen: Present: soft, nontender Extremity: Absent: lower extremity edema Eye contact: Present: cooperative, good eye contact Assessment/Plan Plan Narrative: This is day 9 of hospitalization and day 12 of symptoms. Continue daily dexamethasone. His oxygen requirement has decreased from 15L via hiflo yesterday, to 8L today. He feels like he's slowly improving. NG tube placed over the evening of 07/19/20 for significant nausea. His abdomen is soft and output from the tube is decreasing, 225 cc overnight. Will clamp the tube and continue ice chips. If he tolerates this ok, will start clear liquid diet for this evening. Anticipate his hospitalization will continue for greater than 2 additional midnights. He is alert and able to conversate. - Problems/Diagnosis (1) Acute respiratory failure due to COVID-19 Problem: Acute (2) Small bowel obstruction Problem: Suspected (3) Hypoxia Problem: Acute (4) HTN (hypertension) Problem: Acute (5) AAA (abdominal aortic aneurysm) Problem: Chronic
[2020-07-21] MEDS: POTASSIUM CHLORIDE 20 MEQ in DEXTROSE 5%-0.5 NORMAL SALINE 990 ML IV SCH (15:44)
[2020-07-22] MEDS: POTASSIUM CHLORIDE 20 MEQ in DEXTROSE 5%-0.5 NORMAL SALINE 990 ML IV SCH ×2 (04:50→19:29)
[2020-07-22 06:41] LABS: Hematocrit 36.4 % (42.0-52.0); Hemoglobin 11.8 gm/dL (13.5-18.0); Mean Cell Volume 102.2 fl (78-100); Mean Corpuscular Hemoglobin 33.1 pg (27-31); Mean Corpuscular Hgb Conc 32.4 g/dl (32-36); Mean Platelet Volume 9.5 fl (8-11.3); Neutrophil # 16.8 K/mm3 (1.3-6.0); Neutrophil % 89.4 % (42-75.0); Platelet Count 467 K/mm3 (150-450); Red Blood Count 3.56 M/mm3 (4.7-6.0); Red Cell Distribution Width 13.8 % (11.5-14.0); White Blood Count 18.8 K/mm3 (4.0-10.5)
[2020-07-22] MEDS: PANTOPRAZOLE SODIUM 40 MG TABLET.EC PO SCH (06:51)
[2020-07-22] MEDS: ASPIRIN 81 MG TABLET.DR PO SCH (09:03)
[2020-07-22] MEDS: ENOXAPARIN SODIUM 80 MG/0.8 ML DISP.SYRIN SC SCH ×2 (09:03→21:10)
[2020-07-22] MEDS: DEXAMETHASONE SODIUM PHOSP/PF 10 MG/ML VIAL IV SCH (09:04)
[2020-07-22] MEDS: BENZOCAINE/MENTHOL 16 EACH BOX MM PRN (14:57)
--- NOTE | 2020-07-22 22:33 | PN ---
Subjective - Date and Time Seen Date: 07/22/20 Time: 12:18 Subjective Narrative: Patient laying comfortably in bed. Denies abdominal pain today. Mild shortness of breath (improving) though he hasn't moved much these last few days. He did have an elevated WBC this morning. Procalcitonin pending. Continues to improve with his o2 requirement. Objective - Review of Systems Generalized/Overall Review: Reports: Weakness. Denies: Chills, Fever EENTM: Reports: No Symptoms Reported Respiratory: Reports: Shortness of Breath. Denies: Cough Cardiac: Reports: No Symptoms Reported Abdominal: Reports: No Symptoms Reported, Constipation. Denies: Nausea, Vomiting Musculoskeletal Complaints: Reports: Back Pain Neurological: Reports: No Symptoms Reported Skin: Reports: No Symptoms Reported Endocrine: Reports: No Symptoms Reported - Vitals Vitals: Last Vital Signs Temp 36.6 C 07/22/20 18:24 Pulse 93 07/22/20 18:24 Resp 24 H 07/22/20 18:24 BP 134/77 07/22/20 18:24 Pulse Ox 96 07/22/20 18:24 - Abnormal Lab Findings Abnormal Lab Findings: Abnormal Lab Results 07/22/20 Range/Units 06:36 WBC 18.8 H D (4.0-10.5) K/mm3 RBC 3.56 L (4.7-6.0) M/mm3 Hgb 11.8 L (13.5-18.0) gm/dL Hct 36.4 L (42.0-52.0) % MCV 102.2 H (78-100) fl MCH 33.1 H (27-31) pg Plt Count 467 H (150-450) K/mm3 Immature Gran % (Auto) 1.60 H (0.001-0.429) % Immature Gran # (Auto) 0.30 H (0.000-0.0310) K/mm3 Neutrophils % 89.4 H (42-75.0) % Lymphocytes % 4.0 L (20-51) % Neutrophils # 16.8 H (1.3-6.0) K/mm3 Lymphocytes # 0.75 L (1.5-3.5) k/mm3 - Exam Constitutional: Present: Alert, Oriented x3, Cooperative, Elderly ENT Exam: Present: hearing grossly normal Neck: Present: non-tender, supple Respiratory: Present: lungs clear, decreased breath sounds. Absent: crackles, rhonchi Cardiovascular/Chest: Present: regular rate, rhythm, no murmur Abdomen: Present: Normal bowel sounds, soft, nontender, nondistended Skin Exam: Present: normal color, warm/dry Appearance: Present: appropriate appearance, appropriate insight Eye contact: Present: cooperative, good eye contact Thoughts: Present: normal thought pattern, normal mood /affect Assessment/Plan - Problems/Diagnosis (1) COVID-19 Problem: Acute Narrative: Appears to be improving, requiring less o2 for the last 2 days. On decadron. On lovenox. He does have an elevated WBC today, procalcitonin pending. Does not appear to be in distress, may be due to stress of the covid. Consider respiratory abx vs abdominal coverage if procalcitonin returns elevated. Also consider abdominal CT scan as he has had to mild cases of SBO over the last 10 days. Stable now though (2) AAA (abdominal aortic aneurysm) Problem: Chronic (3) Hypoxia Problem: Acute Narrative: improving (4) HTN (hypertension) Problem: Acute Narrative: stable (5) GERD (gastroesophageal reflux disease) Problem: Chronic (6) Small bowel obstruction Problem: Suspected (7) Urinary retention Problem: Resolved (8) Constipation Problem: Chronic Qualifiers: Constipation type: slow transit constipation Qualified Code(s): K59.01 - Slow transit constipation
[2020-07-23] MEDS: PANTOPRAZOLE SODIUM 40 MG TABLET.EC PO SCH (06:39)
[2020-07-23 07:41] LABS: Hematocrit 30.3 % (42.0-52.0); Hemoglobin 9.9 gm/dL (13.5-18.0); Mean Cell Volume 103.4 fl (78-100); Mean Corpuscular Hemoglobin 33.8 pg (27-31); Mean Corpuscular Hgb Conc 32.7 g/dl (32-36); Mean Platelet Volume 10.1 fl (8-11.3); Platelet Count 477 K/mm3 (150-450); Red Blood Count 2.93 M/mm3 (4.7-6.0); Red Cell Distribution Width 14.1 % (11.5-14.0); White Blood Count 28.6 K/mm3 (4.0-10.5)
[2020-07-23 07:43] LABS: Total Cells Counted 100
[2020-07-23 08:07] LABS: Band 4 % (0-2.0); Lymphocyte 4 % (20-51); Monocyte 3 % (0-9); Neutrophil 89 % (42-75); Neutrophil # 25.5 K/mm3 (1.3-6.0)
[2020-07-23 08:08] LABS: Anisocytosis 1+
[2020-07-23 08:09] LABS: Hypochromia Trace; Platelet Estimate Normal (NORMAL); Polychromasia Trace
[2020-07-23] MEDS: PANTOPRAZOLE SODIUM 40 MG in NORMAL SALINE 100 ML IV SCH ×4 (09:40→22:53)
[2020-07-23] MEDS: DEXAMETHASONE SODIUM PHOSP/PF 10 MG/ML VIAL IV SCH (10:16)
[2020-07-23] MEDS: POTASSIUM CHLORIDE 20 MEQ in DEXTROSE 5%-0.5 NORMAL SALINE 990 ML IV SCH (12:13)
[2020-07-23 12:37] LABS: Hematocrit 29.3 % (42.0-52.0); Hemoglobin 9.7 gm/dL (13.5-18.0); Mean Cell Volume 101.7 fl (78-100); Mean Corpuscular Hemoglobin 33.7 pg (27-31); Mean Corpuscular Hgb Conc 33.1 g/dl (32-36); Mean Platelet Volume 9.9 fl (8-11.3); Platelet Count 459 K/mm3 (150-450); Red Blood Count 2.88 M/mm3 (4.7-6.0); Red Cell Distribution Width 14.2 % (11.5-14.0)
[2020-07-23 12:40] LABS: White Blood Count 33.6 K/mm3 (4.0-10.5)
[2020-07-23] MEDS: metroNIDAZOLE/SODIUM CHLORIDE 500 MG/100 ML BAG IV SCH ×2 (14:41→21:28)
[2020-07-23] MEDS: CIPROFLOXACIN IN 5 % DEXTROSE 400 MG/200 ML BAG IV SCH (14:45)
[2020-07-23 16:40] LABS: Hematocrit 27.2 % (42.0-52.0); Hemoglobin 8.9 gm/dL (13.5-18.0); Mean Cell Volume 102.6 fl (78-100); Mean Corpuscular Hemoglobin 33.6 pg (27-31); Mean Corpuscular Hgb Conc 32.7 g/dl (32-36); Mean Platelet Volume 10.1 fl (8-11.3); Platelet Count 422 K/mm3 (150-450); Red Blood Count 2.65 M/mm3 (4.7-6.0); Red Cell Distribution Width 14.1 % (11.5-14.0); White Blood Count 28.5 K/mm3 (4.0-10.5)
--- NOTE | 2020-07-23 17:28 | PN ---
Subjective - Date and Time Seen Date: 07/23/20 Time: 17:11 Subjective Narrative: Walt is currently resting in bed. Frustrated by his lack of progress. Patient had two bloody bowel movements this morning. Patient's hemoglobin dropped from 11.8-9.7 today following the stools. Patient CBC also increased to 28. Procalcitonin was pending but came back in a negative range for systemic bacterial infection. Patient stable on high flow oxygen at this time. Patient is tired but otherwise states he feels okay. He denies abdominal pain but has had some nausea vomiting. He does endorse some shortness of breath with movement but states he feels fine laying there. He has minimal cough. He has been afebrile since being here. Discussed in detail patient's current condition which patient does endorse at this time to having multiple gastric ulcers in the past. Patient does not want an abdominal CT scan or to see a general surgeon right now for possible scope and wants to try conservative measures only. Discussed in detail patient's CODE STATUS, patient no longer wants compressions or any kind of electrical stimulation of the heart, only intubation and medications to be given to help if he does code. Called and spoke with the son (José) in detail regarding patient status which she was appreciative of and understanding to. Objective - Review of Systems Generalized/Overall Review: Reports: Weakness. Denies: Chills, Fever EENTM: Reports: No Symptoms Reported Respiratory: Reports: Shortness of Breath. Denies: Cough Cardiac: Denies: Chest Pain, Palpitations Abdominal: Reports: Vomiting, Hematemesis, Melena. Denies: Nausea Genitourinary Symptoms: Reports: No Symptoms Reported Neurological: Reports: Depressed. Denies: Headache Skin: Reports: No Symptoms Reported Endocrine: Reports: No Symptoms Reported - Vitals Vitals: Last Vital Signs Temp 36.6 C 07/23/20 14:52 Pulse 93 07/23/20 14:52 Resp 22 H 07/23/20 14:52 BP 116/75 07/23/20 14:52 Pulse Ox 100 07/23/20 14:52 - Abnormal Lab Findings Abnormal Lab Findings: Abnormal Lab Results 07/23/20 07/23/20 07/23/20 Range/Units 05:16 07:25 12: WBC 28.6 H D 33.6 H (4.0-10.5) K/mm3 RBC 2.93 L 2.88 L (4.7-6.0) M/mm3 Hgb 9.9 L 9.7 L (13.5-18.0) gm/dL Hct 30.3 L 29.3 L (42.0-52.0) % MCV 103.4 H 101.7 H (78-100) fl MCH 33.8 H 33.7 H (27-31) pg RDW 14.1 H 14.2 H (11.5-14.0) % Plt Count 477 H 459 H (150-450) K/mm3 Neutrophils % (Manual) 89 H (42-75) % Band Neuts % (Manual) 4 H (0-2.0) % Lymphocytes % (Manual) 4 L (20-51) % Neutrophils # (Manual) 25.5 H (1.3-6.0) K/mm3 Lymphocytes # (Manual) 1.1 L (1.5-3.5) k/mm3 Stool Occult Blood Positive H 07/23/20 Range/Units 16:20 WBC 28.5 H (4.0-10.5) K/mm3 RBC 2.65 L (4.7-6.0) M/mm3 Hgb 8.9 L (13.5-18.0) gm/dL Hct 27.2 L (42.0-52.0) % MCV 102.6 H (78-100) fl MCH 33.6 H (27-31) pg RDW 14.1 H (11.5-14.0) % Plt Count (150-450) K/mm3 Neutrophils % (Manual) (42-75) % Band Neuts % (Manual) (0-2.0) % Lymphocytes % (Manual) (20-51) % Neutrophils # (Manual) (1.3-6.0) K/mm3 Lymphocytes # (Manual) (1.5-3.5) k/mm3 Stool Occult Blood - Exam Constitutional: Present: Alert, Oriented x3, Cooperative, No distress, Elderly ENT Exam: Present: hearing grossly normal. Absent: nasal congestion, nasal drainage Neck: Present: non-tender, supple Respiratory: Present: lungs clear, no respiratory distress, no accessory muscle use Cardiovascular/Chest: Present: regular rate, rhythm, no murmur Abdomen: Present: Normal bowel sounds, soft, nontender, nondistended Skin Exam: Present: warm/dry, pallor Lymphatic: Present: no adenopathy Neurologic: Present: no motor/sensory deficits, alert, oriented x 3, depressed affect. Absent: dizzy/light-headedness Eye contact: Present: cooperative, good eye contact Thoughts: Present: normal thought pattern, normal mood /affect Assessment/Plan Plan Narrative: Patient with significant change in his clinical picture. Patient from a Covid standpoint is stable, requiring just high flow oxygen to maintain sats. We will stop Decadron as this is GI upsetting he has been on long enough where to get benefit today needed for the respiratory infection. We will also stop Lovenox due to GI bleed. Suspected upper GI bleed due to melena and hematemesis. Patient disclosed today that he has had history of gastric ulcers which is likely the source of his upper GI bleed. Started him on a Protonix drip today. Serial hemograms ordered . Stopped low-dose aspirin. Patient on clears only at this time which she is not vomiting. Patient on D5 half-normal saline at 70 mils an hour. Patient's hemoglobin continues to drop, will transfuse 2 units packed red blood cells. Platelets also elevated which is likely due to stress response. Procalcitonin came back negative for systemic bacterial infection. Prior to this returning patient was started on Flagyl and Cipro to cover GI tract infection due to severely elevated leukocytosis compared to previous day. Last white count obtained was 33.6, will repeat CBC in the morning. Patient has been afebrile, Tylenol ordered though if this does arise. Antibiotic should cover any kind of aspiration pneumonia the patient may have the patient respiratory standpoint appears to be stable and I do not think this is the cause of his elevated white count. Again GI more likely the source but patient's abdomen exam is benign. Patient changed from full code to modified full code with only intubation and medicines to be given if any arrhythmia or systole were to happen. Called and discussed this with patient's son as well who was in agreement and stated his understanding to. We will continue to monitor patient's clinical picture, nurse to call with questions or concerns. 2 hours critical care spent with patient, reviewing labs, and developing treatment plan. - Problems/Diagnosis (1) COVID-19 Problem: Acute (2) AAA (abdominal aortic aneurysm) Problem: Chronic (3) Hypoxia Problem: Acute (4) HTN (hypertension) Problem: Acute (5) GERD (gastroesophageal reflux disease) Problem: Chronic (6) Small bowel obstruction Problem: Suspected (7) Urinary retention Problem: Resolved (8) Constipation Problem: Resolved Qualifiers: Constipation type: slow transit constipation Qualified Code(s): K59.01 - Slow transit constipation (9) GI bleed Problem: Suspected
[2020-07-24] MEDS: CIPROFLOXACIN IN 5 % DEXTROSE 400 MG/200 ML BAG IV SCH ×2 (02:29→15:30)
[2020-07-24] MEDS: POTASSIUM CHLORIDE 20 MEQ in DEXTROSE 5%-0.5 NORMAL SALINE 990 ML IV SCH ×2 (02:29→21:03)
[2020-07-24] MEDS: PANTOPRAZOLE SODIUM 40 MG in NORMAL SALINE 100 ML IV SCH ×4 (03:53→20:39)
[2020-07-24] MEDS: metroNIDAZOLE/SODIUM CHLORIDE 500 MG/100 ML BAG IV SCH ×3 (05:19→23:15)
[2020-07-24 07:27] LABS: Hematocrit 28.3 % (42.0-52.0); Mean Cell Volume 104.8 fl (78-100); Mean Corpuscular Hemoglobin 33.3 pg (27-31); Mean Corpuscular Hgb Conc 31.8 g/dl (32-36); Mean Platelet Volume 10.3 fl (8-11.3); Platelet Count 422 K/mm3 (150-450); Red Cell Distribution Width 14.5 % (11.5-14.0); White Blood Count 32.9 K/mm3 (4.0-10.5)
[2020-07-24 07:30] LABS: Total Cells Counted 100
[2020-07-24 07:58] LABS: Atypical (Reactive) Lymph 1 % (0-2); Band 5 % (0-2.0); Immature Granulocyte 1 (0-1); Lymphocyte 4 % (20-51); Monocyte 5 % (0-9); Neutrophil 84 % (42-75); Neutrophil # 27.6 K/mm3 (1.3-6.0)
[2020-07-24 07:59] LABS: Platelet Estimate Normal (NORMAL)
[2020-07-24 08:00] LABS: Hypochromia Trace; Macrocytosis 2+; Polychromasia Trace
--- NOTE | 2020-07-24 17:31 | PN ---
Subjective - Date and Time Seen Date: 07/24/20 Time: 17:23 Subjective Narrative: Patient sitting in bed today comfortable but tired, does not like having the NG tube in his nose. It was restarted today due to hypoactive bowel sounds the patient denies any abdominal pain or nausea or vomiting for last 4 hours. He wants a pulled out which I think is appropriate at this time. Otherwise vital signs have been stable aside from requiring high flow nasal cannula oxygen to maintain sats. Patient not getting up and moving around out of bed much which I think is hard and his respiratory status. Patient has not had any more bloody bowel movements and his hemoglobin is stable compared to the day previously. Patient is on day 2 of telemetry strip which will be discontinued tomorrow and he will be started on IV Protonix twice daily. Objective - Review of Systems Generalized/Overall Review: Reports: Weakness. Denies: Chills, Fever EENTM: Reports: No Symptoms Reported Respiratory: Reports: Shortness of Breath. Denies: Cough Cardiac: Reports: Chest Pain, Palpitations Abdominal: Denies: Nausea, Vomiting, Hematemesis, Abdominal Pain, Melena Genitourinary Symptoms: Reports: No Symptoms Reported Musculoskeletal Complaints: Reports: Back Pain Neurological: Reports: No Symptoms Reported Skin: Reports: No Symptoms Reported Endocrine: Reports: No Symptoms Reported - Vitals Vitals: Last Vital Signs Temp 37.1 C 07/24/20 13:19 Pulse 86 07/24/20 13:19 Resp 16 07/24/20 13:19 BP 132/68 07/24/20 13:19 Pulse Ox 100 07/24/20 13:19 - Abnormal Lab Findings Abnormal Lab Findings: Abnormal Lab Results 07/24/20 Range/Units 07:19 WBC 32.9 H (4.0-10.5) K/mm3 RBC 2.70 L (4.7-6.0) M/mm3 Hgb 9.0 L (13.5-18.0) gm/dL Hct 28.3 L (42.0-52.0) % MCV 104.8 H (78-100) fl MCH 33.3 H (27-31) pg MCHC 31.8 L (32-36) g/dl RDW 14.5 H (11.5-14.0) % Neutrophils % (Manual) 84 H (42-75) % Band Neuts % (Manual) 5 H (0-2.0) % Lymphocytes % (Manual) 4 L (20-51) % Neutrophils # (Manual) 27.6 H (1.3-6.0) K/mm3 Lymphocytes # (Manual) 1.3 L (1.5-3.5) k/mm3 Monocytes # (Manual) 1.6 H (0.0-1.0) k/mm3 - Exam Constitutional: Present: Alert, Oriented x3, Somnolent, Elderly ENT Exam: Present: hearing grossly normal, muffled/hoarse voice, other - Sore inside of nostril where NG tube was placed. Absent: nasal congestion, nasal drainage Neck: Present: non-tender, supple Respiratory: Present: lungs clear, decreased breath sounds. Absent: respiratory distress Cardiovascular/Chest: Present: regular rate, rhythm, no murmur Abdomen: Present: soft, nontender, nondistended, hypoactive Skin Exam: Present: warm/dry, pallor Neurologic: Present: alert, oriented x 3. Absent: facial droop, motor weakness, sensory deficit Appearance: Present: appropriate appearance, appropriate insight Eye contact: Present: cooperative, good eye contact Thoughts: Present: normal thought pattern, normal mood /affect Assessment/Plan Plan Narrative: Patient currently resting in bed. He is tired today, feels like he is getting worn out from this process which is understandable has been here so long. From a respiratory standpoint patient is still requiring high flow oxygen to maintain sats but otherwise is stable. He has not required CPAP anymore, he is not dropping too low on his sats anymore, he denies cough. He does endorse shortness of breath at times but feels like this is improving. Because he is laying in bed so much and not getting up and moving and exercise in his lungs I think this is partially why he is not improving quicker from a respiratory standpoint but I think due to his upper GI bleed that he is just tired and needs to rest some of this likely gastric ulcer healed. Patient on day 2 of Protonix drip. This was stopped tomorrow and he will be started on IV Protonix twice daily. He is no longer on anything that should be GI upsetting. He has clear liquid diet ordered which he is tolerating ice chips. Remove the NG tube this evening as it did not allow much throughout the day (mostly iced chips). Patient's bili is nontender, nondistended, unlikely to have obstruction. He does have hypoactive bowel sounds currently is not passing gas but he does not feel the urge or need to go. After his 2 big bowel movement yesterday this is understandable. Monitoring hemoglobin, unchanged from yesterdaystable. Repeat CBC in the morning. May need to have NG tube replaced at some point in the future if he does become distended again follow-up with us if not needed. Patient again does not want CT scan of his belly, does not want general surgery consult. Patient is on Flagyl and Cipro for suspected abdominal infection, white count still elevated today but from a clinical standpoint patient does not appear to have an infection just covering our bases. We will check CHEM panel in the morning. Advance diet as tolerated. Nurse to call questions or concerns. - Problems/Diagnosis (1) COVID-19 Problem: Acute (2) AAA (abdominal aortic aneurysm) Problem: Chronic (3) Hypoxia Problem: Acute (4) HTN (hypertension) Problem: Acute (5) GERD (gastroesophageal reflux disease) Problem: Chronic (6) Small bowel obstruction Problem: Suspected (7) Urinary retention Problem: Resolved (8) Constipation Problem: Resolved Qualifiers: Constipation type: slow transit constipation Qualified Code(s): K59.01 - Slow transit constipation (9) GI bleed Problem: Suspected Qualifiers: GI bleed type/associated pathology: gastric ulcer Qualified Code(s): K25.4 - Chronic or unspecified gastric ulcer with hemorrhage
[2020-07-25] MEDS: PANTOPRAZOLE SODIUM 40 MG in NORMAL SALINE 100 ML IV SCH ×3 (00:46→21:08)
[2020-07-25] MEDS: CIPROFLOXACIN IN 5 % DEXTROSE 400 MG/200 ML BAG IV SCH ×2 (02:50→13:42)
[2020-07-25] MEDS: metroNIDAZOLE/SODIUM CHLORIDE 500 MG/100 ML BAG IV SCH ×3 (06:44→23:15)
[2020-07-25 10:35] LABS: Hematocrit 24.2 % (42.0-52.0); Mean Cell Volume 104.8 fl (78-100); Mean Corpuscular Hemoglobin 33.8 pg (27-31); Mean Corpuscular Hgb Conc 32.2 g/dl (32-36); Mean Platelet Volume 9.9 fl (8-11.3); NRBC# 0.1 k/mm3 (0-1); Neutrophil # 14.4 K/mm3 (1.3-6.0); Neutrophil % 84.8 % (42-75.0); Platelet Count 316 K/mm3 (150-450); Red Blood Count 2.31 M/mm3 (4.7-6.0); Red Cell Distribution Width 14.9 % (11.5-14.0); White Blood Count 16.9 K/mm3 (4.0-10.5)
[2020-07-25 10:45] LABS: Hemoglobin 7.8 gm/dL (13.5-18.0)
[2020-07-25 10:49] LABS: Albumin * 1.8 gm/dl (3.4-5.0); Anion Gap 7.7 mmol/L (6.8-13.8); BUN/Creatinine Ratio 34.1 (9.0-21.6); Bilirubin, Total 0.5 mg/dL (0.0-1.1); Ca. Corrected For Albumin 8.5 mg/dL (8.4-10.2); Calcium * 7.1 mg/dL (7.9-10.9); Carbon Dioxide 26.3 mmol/L (24-32.6)
[2020-07-25] MEDS: POTASSIUM CHLORIDE 20 MEQ in DEXTROSE 5%-0.5 NORMAL SALINE 990 ML IV SCH (13:20)
--- NOTE | 2020-07-25 17:14 | PN ---
Subjective - Date and Time Seen Date: 07/25/20 Time: 17:13 Subjective Narrative: He is feeling better today. No abdominal pain. No nausea or bloody bowel movements. His hemoglobin did drop from 8.9 to to 7.8. His wbc also decreased significantly. He has been afebrile while here. He is on 2 antibiotics. He is breathing the same but at least its stable even though he is still requiring high flow o2 to maintain sats. He denies cough. Still has some shortness of breath. Objective - Review of Systems Generalized/Overall Review: Reports: Weakness. Denies: Chills, Fever EENTM: Reports: No Symptoms Reported Respiratory: Reports: Shortness of Breath. Denies: Cough Cardiac: Reports: No Symptoms Reported Abdominal: Reports: No Symptoms Reported Genitourinary Symptoms: Reports: No Symptoms Reported Musculoskeletal Complaints: Reports: Back Pain Neurological: Reports: No Symptoms Reported - Vitals Vitals: Last Vital Signs Temp 36.4 C 07/25/20 14:29 Pulse 84 07/25/20 14:29 Resp 20 07/25/20 14:29 BP 121/62 07/25/20 14:29 Pulse Ox 99 07/25/20 14:29 - Abnormal Lab Findings Abnormal Lab Findings: Abnormal Lab Results 07/25/20 07/25/20 Range/Units 10:06 10:06 WBC 16.9 H D (4.0-10.5) K/mm3 RBC 2.31 L (4.7-6.0) M/mm3 Hgb 7.8 L* (13.5-18.0) gm/dL Hct 24.2 L (42.0-52.0) % MCV 104.8 H (78-100) fl MCH 33.8 H (27-31) pg RDW 14.9 H (11.5-14.0) % Immature Gran % (Auto) 2.10 H (0.001-0.429) % Immature Gran # (Auto) 0.36 H (0.000-0.0310) K/mm3 Neutrophils % 84.8 H (42-75.0) % Lymphocytes % 7.0 L (20-51) % Neutrophils # 14.4 H (1.3-6.0) K/mm3 Lymphocytes # 1.18 L (1.5-3.5) k/mm3 Chloride 108 H (97-106) mmol/L BUN 29 H (6-23) mg/dL BUN/Creatinine Ratio 34.1 H (9.0-21.6) Random Glucose 116 H (70-110) mg/dL Calcium 7.1 L (7.9-10.9) mg/dL Alkaline Phosphatase 41 L (50-170) U/L Total Protein 5.0 L (6.2-8.2) gm/dL Albumin 1.8 L (3.4-5.0) gm/dl - Exam Constitutional: Present: Alert, Oriented x3, No distress, Elderly ENT Exam: Present: hearing grossly normal Respiratory: Present: lungs clear, decreased breath sounds Cardiovascular/Chest: Present: regular rate, rhythm, no murmur Abdomen: Present: soft, nontender, nondistended, hypoactive Skin Exam: Present: warm/dry, pallor Neurologic: Present: alert, normal mood/affect, oriented x 3 Appearance: Present: appropriate appearance, appropriate insight Eye contact: Present: cooperative, good eye contact Thoughts: Present: normal thought pattern, normal mood /affect Assessment/Plan Plan Narrative: Overall he appears to have improved from yesterday though his condition is serious. He is stable from a respiratory standpoint. He will be weaned down from the oxygen as tolerated. Patient needs to get up and get moving more which I think he will once his belly starts feeling better. IV protonix drip stopped today. Chagned to IV bid dosing. NG tube was pulled yesterday and he is feeling well without. Able to tolerate clears pretty well for the first time. His WBC also decreased by almlost 50% while on flagyl and cipro. No new melanic stools or hematemesis. Repeat CBC in the am. DO to decreased hemoglobin, will consider transfusing 1-2 unit of blood in the am if he drops anymore. Heart rate and BP stable currently. Nurse to call with questions or concerns. 45 minutes critical care time spent on him today. - Problems/Diagnosis (1) COVID-19 Problem: Acute (2) AAA (abdominal aortic aneurysm) Problem: Chronic (3) Hypoxia Problem: Acute (4) HTN (hypertension) Problem: Acute (5) GERD (gastroesophageal reflux disease) Problem: Chronic (6) Small bowel obstruction Problem: Suspected (7) Urinary retention Problem: Resolved (8) Constipation Problem: Resolved Qualifiers: Constipation type: slow transit constipation Qualified Code(s): K59.01 - Slow transit constipation (9) GI bleed Problem: Suspected Qualifiers: GI bleed type/associated pathology: gastric ulcer Qualified Code(s): K25.4 - Chronic or unspecified gastric ulcer with hemorrhage
[2020-07-26] MEDS: CIPROFLOXACIN IN 5 % DEXTROSE 400 MG/200 ML BAG IV SCH ×2 (02:48→13:54)
[2020-07-26 06:43] LABS: Mean Cell Volume 104.1 fl (78-100); Mean Corpuscular Hemoglobin 33.5 pg (27-31); Mean Corpuscular Hgb Conc 32.2 g/dl (32-36); Mean Platelet Volume 9.8 fl (8-11.3); Platelet Count 220 K/mm3 (150-450); Red Blood Count 2.18 M/mm3 (4.7-6.0); Red Cell Distribution Width 15.2 % (11.5-14.0); White Blood Count 13.7 K/mm3 (4.0-10.5)
[2020-07-26] MEDS: metroNIDAZOLE/SODIUM CHLORIDE 500 MG/100 ML BAG IV SCH ×3 (07:00→22:31)
[2020-07-26] MEDS: POTASSIUM CHLORIDE 20 MEQ in DEXTROSE 5%-0.5 NORMAL SALINE 990 ML IV SCH ×2 (07:00→08:22)
[2020-07-26 07:06] LABS: Hemoglobin 7.3 gm/dL (13.5-18.0)
[2020-07-26 07:07] LABS: Hematocrit 22.7 % (42.0-52.0); Total Cells Counted 100
[2020-07-26 07:12] LABS: Immature Granulocyte 1 (0-1); Lymphocyte 7 % (20-51); Monocyte 6 % (0-9); Neutrophil 86 % (42-75); Neutrophil # 11.8 K/mm3 (1.3-6.0)
[2020-07-26 07:13] LABS: Basophilic Stippling Trace; Hypochromia Trace; Macrocytosis 2+; Platelet Estimate Normal (NORMAL); Polychromasia 1+
[2020-07-26 07:14] LABS: Giant Platelets 1+
[2020-07-26] MEDS: PANTOPRAZOLE SODIUM 40 MG in NORMAL SALINE 100 ML IV SCH ×2 (08:28→20:38)
[2020-07-26] MEDS ORDERED: FUROSEMIDE 10 MG/ML VIAL IV PRN (08:42)
[2020-07-26] MEDS ORDERED: FUROSEMIDE 10 MG/ML VIAL ONE (15:20)
--- NOTE | 2020-07-26 16:51 | PN ---
Subjective - Date and Time Seen Date: 07/26/20 Time: 16:41 Subjective Narrative: Patient today is much more conversant, much more pleasant. Patient completed therapy as directed, able to get out of bed and sit in his chair for greater than 4 hours today. Patient was more anemic this morning than yesterday, hemoglobin 7.3. Currently on his second unit of transfusion. Patient's vital signs been stable, his respiratory status is also improving. He denies abdominal pain, nausea, vomiting, or thick tarry stools. Overall significant improvement compared to previous day. Objective - Review of Systems Generalized/Overall Review: Reports: Weakness. Denies: Chills, Fever EENTM: Reports: No Symptoms Reported Respiratory: Reports: Shortness of Breath - Improving. Denies: Cough Cardiac: Reports: No Symptoms Reported Abdominal: Denies: Nausea, Vomiting, Abdominal Pain, Melena Genitourinary Symptoms: Reports: No Symptoms Reported Musculoskeletal Complaints: Reports: Back Pain Neurological: Reports: No Symptoms Reported Skin: Reports: No Symptoms Reported Endocrine: Reports: No Symptoms Reported - Vitals Vitals: Last Vital Signs Temp 36.8 C 07/26/20 15:22 Pulse 96 07/26/20 15:22 Resp 18 07/26/20 15:22 BP 127/68 07/26/20 15:22 Pulse Ox 94 07/26/20 15:22 - Abnormal Lab Findings Abnormal Lab Findings: Abnormal Lab Results 07/26/20 07/26/20 Range/Units 06:30 10:21 WBC 13.7 H (4.0-10.5) K/mm3 RBC 2.18 L (4.7-6.0) M/mm3 Hgb 7.3 L* (13.5-18.0) gm/dL Hct 22.7 L* (42.0-52.0) % MCV 104.1 H (78-100) fl MCH 33.5 H (27-31) pg RDW 15.2 H (11.5-14.0) % Neutrophils % (Manual) 86 H (42-75) % Lymphocytes % (Manual) 7 L (20-51) % Neutrophils # (Manual) 11.8 H (1.3-6.0) K/mm3 Lymphocytes # (Manual) 1.0 L (1.5-3.5) k/mm3 Crossmatch See Detail - Exam Constitutional: Present: Alert, Oriented x3, Cooperative, Elderly ENT Exam: Present: hearing grossly normal Neck: Present: non-tender, supple Respiratory: Present: lungs clear, normal breath sounds. Absent: respiratory distress Cardiovascular/Chest: Present: regular rate, rhythm, no murmur Abdomen: Present: soft, nontender, nondistended, hypoactive - Also improving Skin Exam: Present: warm/dry, pallor Neurologic: Present: alert, oriented x 3 Appearance: Present: appropriate appearance, appropriate insight Eye contact: Present: cooperative, good eye contact Thoughts: Present: normal thought pattern, normal mood /affect Assessment/Plan Plan Narrative: We will see how patient does over the weekend but if he continues to improve as he is currently doing, likely home early next week versus [facility] for physical therapy secondary to pretty severe deconditioning from his coronavirus pneumonia and GI bleed. 1 hour critical care time spent with patient today - Problems/Diagnosis (1) Blood loss anemia Problem: Acute Narrative: Patient hemoglobin continued to trend downward today, 7.8 yesterday down to 7.3 today. I think this will stabilize as patient has not had any more hematemesis or melanotic stools. Patient currently being transfused his second unit of blood. Patient did receive 10 mg IV Lasix in between. 2 hours posttransfusion hemogram ordered. Patient currently on Protonix IV twice daily dosing after completing 2 days of Protonix drip. Patient denies abdominal pain and is clinically stable from an exam standpoint. Repeat CBC in the morning. (2) GI bleed Problem: Suspected Qualifiers: GI bleed type/associated pathology: gastric ulcer Qualified Code(s): K25.4 - Chronic or unspecified gastric ulcer with hemorrhage Narrative: Concern for intra-abdominal infection secondary to GI bleed as patient's white count got up to as high as 33. Continue to trend downward after being on 2 days of Cipro Flagyl. We will continue this for another 3 days. Patient is asymptomatic otherwise. Patient's procalcitonin was negative x2. Repeat CBC in the a.m. (3) COVID-19 Problem: Acute Narrative: Much more stable today than previously. Currently on 6 L nonrebreather. Patient has been afebrile and his other vital signs are stable patient able to tolerate physical therapy today which is significant for him. Patient received 10 days of Decadron. Lovenox currently being held due to GI bleed. (4) Hypoxia Problem: Acute (5) AAA (abdominal aortic aneurysm) Problem: Chronic Narrative: Stable (6) HTN (hypertension) Problem: Acute Narrative: Well controlled (7) GERD (gastroesophageal reflux disease) Problem: Chronic (8) Small bowel obstruction Problem: Suspected (9) Urinary retention Problem: Resolved (10) Constipation Problem: Resolved Qualifiers: Constipation type: slow transit constipation Qualified Code(s): K59.01 - Slow transit constipation
[2020-07-26 21:18] LABS: Hematocrit 28.9 % (42.0-52.0); Hemoglobin 9.3 gm/dL (13.5-18.0); Mean Cell Volume 100.3 fl (78-100); Mean Corpuscular Hemoglobin 32.3 pg (27-31); Mean Corpuscular Hgb Conc 32.2 g/dl (32-36); Mean Platelet Volume 9.9 fl (8-11.3); Platelet Count 173 K/mm3 (150-450); Red Blood Count 2.88 M/mm3 (4.7-6.0); Red Cell Distribution Width 16.1 % (11.5-14.0); White Blood Count 13.1 K/mm3 (4.0-10.5)
[2020-07-27] MEDS: CIPROFLOXACIN IN 5 % DEXTROSE 400 MG/200 ML BAG IV SCH ×2 (02:28→15:34)
[2020-07-27] MEDS: POTASSIUM CHLORIDE 20 MEQ in DEXTROSE 5%-0.5 NORMAL SALINE 990 ML IV SCH ×2 (02:50→21:29)
[2020-07-27 05:27] LABS: Hematocrit 31.5 % (42.0-52.0); Hemoglobin 10.1 gm/dL (13.5-18.0); Mean Corpuscular Hemoglobin 32.4 pg (27-31); Mean Corpuscular Hgb Conc 32.1 g/dl (32-36); Mean Platelet Volume 9.6 fl (8-11.3); Platelet Count 167 K/mm3 (150-450); Red Blood Count 3.12 M/mm3 (4.7-6.0); Red Cell Distribution Width 16.5 % (11.5-14.0)
[2020-07-27 05:30] LABS: Total Cells Counted 100
[2020-07-27 05:57] LABS: Lymphocyte 7 % (20-51); Monocyte 6 % (0-9); Neutrophil 87 % (42-75); Neutrophil # 12.2 K/mm3 (1.3-6.0)
[2020-07-27 05:58] LABS: Platelet Estimate Normal (NORMAL)
[2020-07-27 06:01] LABS: Macrocytosis 1+
[2020-07-27 06:02] LABS: Polychromasia Trace
[2020-07-27] MEDS: metroNIDAZOLE/SODIUM CHLORIDE 500 MG/100 ML BAG IV SCH ×3 (06:39→22:01)
[2020-07-27] MEDS: PANTOPRAZOLE SODIUM 40 MG in NORMAL SALINE 100 ML IV SCH ×2 (08:40→20:18)
--- NOTE | 2020-07-27 13:16 | PN ---
Subjective - Date and Time Seen Date: 07/27/20 Time: 13:06 Subjective Narrative: I feel better, no abdominal pain. Objective Objective Narrative: 80-year-old male admitted for COVID-19 pneumonia and GI bleeding with subsequent anemia was evaluated at bedside and was found to be afebrile and in no acute distress. Patient appears tired during today's evaluation and is in low spirits, from what I understand this is expected given his long duration in the hospital and even worse in isolation. However he reports improvement in his breathing and he denies any abdominal pain or discomfort. There has been no recurrence of melena or other forms of GI bleeding and his hemoglobin has increased to 10 after he was transfused 2 units of PRBCs. The patient maintained stable vitals and has not had any recurrence of fever or chills. He is currently on an Oxymask which he is tolerating without any issues, with this he is maintaining oxygen saturation above 93%. Given his hypoactivity I would not keep weaning orders at this moment but just continue to monitor him. The patient also appears extremely deconditioned most likely from being in bed and not moving around much, however he is currently receiving in hospital PT. We will reevaluate him in the morning, in the meantime he is being encouraged to increase his oral intake in order to progress his diet. At the moment he continues on a liquid diet but says he has poor appetite, will continue to encourage him. - Review of Systems Generalized/Overall Review: Reports: Weakness EENTM: Reports: No Symptoms Reported Respiratory: Reports: No Symptoms Reported Cardiac: Reports: No Symptoms Reported Abdominal: Reports: Other - Poor appetite Genitourinary Symptoms: Reports: No Symptoms Reported Musculoskeletal Complaints: Reports: No Symptoms Reported Neurological: Reports: No Symptoms Reported Skin: Reports: No Symptoms Reported Endocrine: Reports: No Symptoms Reported - Vitals Vitals: Last Vital Signs Temp 36.4 C 07/27/20 11:00 Pulse 89 07/27/20 11:00 Resp 18 07/27/20 11:00 BP 134/74 07/27/20 11:00 Pulse Ox 94 07/27/20 11:00 - Abnormal Lab Findings Abnormal Lab Findings: Abnormal Lab Results 07/26/20 07/26/20 07/27/20 Range/Units 10:21 21:15 05:20 WBC 13.1 H 14.0 H (4.0-10.5) K/mm3 RBC 2.88 L 3.12 L (4.7-6.0) M/mm3 Hgb 9.3 L 10.1 L (13.5-18.0) gm/dL Hct 28.9 L 31.5 L (42.0-52.0) % MCV 100.3 H 101.0 H (78-100) fl MCH 32.3 H 32.4 H (27-31) pg RDW 16.1 H 16.5 H (11.5-14.0) % Neutrophils % (Manual) 87 H (42-75) % Lymphocytes % (Manual) 7 L (20-51) % Neutrophils # (Manual) 12.2 H (1.3-6.0) K/mm3 Lymphocytes # (Manual) 1.0 L (1.5-3.5) k/mm3 Crossmatch See Detail - Exam Constitutional: Present: Alert, Oriented x3, Cooperative, Well developed, No distress, Elderly ENT Exam: Present: normal ENT inspection, hearing grossly normal Neck: Present: non-tender, full range of motion, supple, normal inspection, trachea midline Breasts: Present: Exam deferred, Nontender Respiratory: Present: chest non-tender, lungs clear, normal breath sounds, no respiratory distress, no accessory muscle use Cardiovascular/Chest: Present: normal peripheral pulses, regular rate, rhythm, no chest tenderness, no edema, no gallop, no JVD, no murmur, no rub Abdomen: Present: Normal bowel sounds, soft, nontender, nondistended, no rebound tenderness, no hepatospenomegaly, no masses, obese /Rectal: Present: Exam deferred Extremity: Present: normal range of motion, non-tender, normal inspection, no pedal edema, no calf tenderness, normal capillary refill Skin Exam: Present: normal color, warm/dry, no cyanosis Lymphatic: Present: no adenopathy Neurologic: Present: line palletizer II-XII nml as tested, no motor/sensory deficits, alert, normal mood/affect, oriented x 3 Appearance: Present: appropriate appearance, appropriate insight, neat, no memory impairment Eye contact: Present: cooperative, good eye contact, normal speech Thoughts: Present: normal thought pattern, no apparent hallucination Assessment/Plan Plan Narrative: We will continue current management and repeat labs in the morning for reevaluation. If patient tolerates his clear liquid diet we will progress the diet to see how he tolerates soft food and solids. - Problems/Diagnosis (1) COVID-19 Problem: Acute (2) AAA (abdominal aortic aneurysm) Problem: Chronic (3) Hypoxia Problem: Resolved (4) HTN (hypertension) Problem: Chronic (5) GERD (gastroesophageal reflux disease) Problem: Chronic (6) GI bleed Problem: Suspected Qualifiers: GI bleed type/associated pathology: gastric ulcer Qualified Code(s): K25.4 - Chronic or unspecified gastric ulcer with hemorrhage (7) Blood loss anemia Problem: Acute (8) Physical deconditioning Problem: Acute (9) Generalized weakness Problem: Acute
[2020-07-28] MEDS: CIPROFLOXACIN IN 5 % DEXTROSE 400 MG/200 ML BAG IV SCH ×2 (02:40→13:26)
[2020-07-28] MEDS: metroNIDAZOLE/SODIUM CHLORIDE 500 MG/100 ML BAG IV SCH ×3 (06:39→22:23)
[2020-07-28 07:14] LABS: Hematocrit 29.7 % (42.0-52.0); Hemoglobin 9.6 gm/dL (13.5-18.0); Mean Cell Volume 100.3 fl (78-100); Mean Corpuscular Hemoglobin 32.4 pg (27-31); Mean Corpuscular Hgb Conc 32.3 g/dl (32-36); Mean Platelet Volume 10.2 fl (8-11.3); Platelet Count 122 K/mm3 (150-450); Red Blood Count 2.96 M/mm3 (4.7-6.0); Red Cell Distribution Width 16.7 % (11.5-14.0); White Blood Count 12.1 K/mm3 (4.0-10.5)
[2020-07-28 07:17] LABS: Total Cells Counted 100
[2020-07-28 07:25] LABS: Albumin * 1.7 gm/dl (3.4-5.0); BUN/Creatinine Ratio 17.5 (9.0-21.6); Bilirubin, Total 0.6 mg/dL (0.0-1.1); Ca. Corrected For Albumin 8.5 mg/dL (8.4-10.2); Carbon Dioxide 26.9 mmol/L (24-32.6); Potassium 3.9 mmol/L (3.4-4.6)
[2020-07-28 08:27] LABS: Band 3 % (0-2.0); Basophil 1 % (0-1); Eosinophil 1 % (0-3); Lymphocyte 6 % (20-51); Monocyte 7 % (0-9); Neutrophil 82 % (42-75); Neutrophil # 9.9 K/mm3 (1.3-6.0)
[2020-07-28 08:28] LABS: Platelet Estimate Normal (NORMAL); RBC Morphology Normal (NORMAL)
[2020-07-28] MEDS: PANTOPRAZOLE SODIUM 40 MG in NORMAL SALINE 100 ML IV SCH ×2 (09:18→20:40)
[2020-07-28] MEDS: POTASSIUM CHLORIDE 20 MEQ in DEXTROSE 5%-0.5 NORMAL SALINE 990 ML IV SCH (09:19)
--- NOTE | 2020-07-28 14:43 | PN ---
Subjective - Date and Time Seen Date: 07/28/20 Time: 14:34 Subjective Narrative: I feel better, no abdominal pain but still do not have an appetite. Objective Objective Narrative: 80-year-old occasion male admitted for COVID-19 pneumonia, generalized weakness, respiratory failure, hypoxia, hemorrhagic anemia, and GI bleeding was evaluated at bedside was found to be afebrile and in no acute distress. Patient denies any abdominal pain this morning but still has not been eating much, he reports just not having an appetite. I suspect this is due to fear of recurrence of his GI bleeding, so during the bedside evaluation he was encouraged to increase his oral intake in order to be able to progress his diet. Yesterday we made a failed attempt to wean him down to his baseline oxygen however the patient desatted when he got up to use the bedside commode, oxygen saturation dropped down to the mid 80s therefore we had to increase his oxygen back to where it was . This morning he is on oxygen mask requiring 6 L which is still more than his baseline but I instructed the nurse to attempt once again to wean him down, will see how he tolerates this. Physical exam did not reveal anything new but I will note that the patient's deconditioning continues to be a significant issue. He hardly moves except to use the bedside commode and appears to be depressed. After such a long hospitalization this is to be expected, I am hopeful that he will leave soon to start some type of rehabilitation once he improves. Labs this morning showed stabilization of his hemoglobin and his white count continues to trend down with a dual antibiotics he is receiving, this is all clinical progress and very encouraging we are hopeful that the patient will recuperate without any major issues from his illness. - Review of Systems Generalized/Overall Review: Reports: Weakness EENTM: Reports: No Symptoms Reported Respiratory: Reports: Shortness of Breath Cardiac: Reports: No Symptoms Reported Abdominal: Reports: Other - Poor appetite Genitourinary Symptoms: Reports: No Symptoms Reported Musculoskeletal Complaints: Reports: No Symptoms Reported Neurological: Reports: No Symptoms Reported Skin: Reports: No Symptoms Reported Endocrine: Reports: No Symptoms Reported - Vitals Vitals: Last Vital Signs Temp 36.5 C 07/28/20 10:00 Pulse 90 07/28/20 10:00 Resp 16 07/28/20 10:00 BP 138/76 07/28/20 10:00 Pulse Ox 98 07/28/20 10:00 - Abnormal Lab Findings Abnormal Lab Findings: Abnormal Lab Results 07/28/20 07/28/20 Range/Units 06:40 06:40 WBC 12.1 H (4.0-10.5) K/mm3 RBC 2.96 L (4.7-6.0) M/mm3 Hgb 9.6 L (13.5-18.0) gm/dL Hct 29.7 L (42.0-52.0) % MCV 100.3 H (78-100) fl MCH 32.4 H (27-31) pg RDW 16.7 H (11.5-14.0) % Plt Count 122 L (150-450) K/mm3 Neutrophils % (Manual) 82 H (42-75) % Band Neuts % (Manual) 3 H (0-2.0) % Lymphocytes % (Manual) 6 L (20-51) % Neutrophils # (Manual) 9.9 H (1.3-6.0) K/mm3 Lymphocytes # (Manual) 0.7 L (1.5-3.5) k/mm3 Anion Gap 6.0 L (6.8-13.8) mmol/L Random Glucose 114 H (70-110) mg/dL Calcium 7.0 L (7.9-10.9) mg/dL Alkaline Phosphatase 39 L (50-170) U/L Total Protein 5.0 L (6.2-8.2) gm/dL Albumin 1.7 L (3.4-5.0) gm/dl - Exam Constitutional: Present: Alert, Oriented x3, Cooperative, Well developed, Well nourished, No distress, Elderly ENT Exam: Present: normal ENT inspection, hard of hearing Neck: Present: non-tender, full range of motion, supple, normal inspection, trachea midline Breasts: Present: Exam deferred, Nontender Respiratory: Present: no respiratory distress, no accessory muscle use, decreased breath sounds Cardiovascular/Chest: Present: normal peripheral pulses, regular rate, rhythm, no chest tenderness, no edema, no gallop, no JVD, no murmur, no rub Abdomen: Present: Normal bowel sounds, soft, nontender, nondistended, no rebound tenderness, no hepatospenomegaly, no masses /Rectal: Present: Exam deferred Extremity: Present: normal range of motion, non-tender, normal inspection, no pedal edema, no calf tenderness, normal capillary refill, pelvis stable Skin Exam: Present: normal color, warm/dry, no cyanosis Lymphatic: Present: no adenopathy Neurologic: Present: no motor/sensory deficits, alert, oriented x 3 Appearance: Present: appropriate appearance, appropriate insight, neat Eye contact: Present: cooperative, good eye contact, normal speech Thoughts: Present: normal thought pattern, no apparent hallucination Assessment/Plan Plan Narrative: We will see how the patient tolerates an attempt at weaning his oxygen. Repeat labs will be ordered for tomorrow morning for reevaluation of hemoglobin, electrolytes, and WBCs. - Problems/Diagnosis (1) COVID-19 Problem: Acute (2) AAA (abdominal aortic aneurysm) Problem: Chronic (3) Hypoxia Problem: Resolved (4) HTN (hypertension) Problem: Chronic (5) GERD (gastroesophageal reflux disease) Problem: Chronic (6) GI bleed Problem: Suspected Qualifiers: GI bleed type/associated pathology: gastric ulcer Qualified Code(s): K25.4 - Chronic or unspecified gastric ulcer with hemorrhage (7) Blood loss anemia Problem: Acute (8) Physical deconditioning Problem: Acute (9) Generalized weakness Problem: Acute (10) Poor appetite Problem: Acute
[2020-07-29] MEDS: CIPROFLOXACIN IN 5 % DEXTROSE 400 MG/200 ML BAG IV SCH ×2 (02:01→13:51)
[2020-07-29] MEDS: POTASSIUM CHLORIDE 20 MEQ in DEXTROSE 5%-0.5 NORMAL SALINE 990 ML IV SCH ×3 (05:25→23:31)
[2020-07-29] MEDS: metroNIDAZOLE/SODIUM CHLORIDE 500 MG/100 ML BAG IV SCH ×2 (06:34→15:17)
[2020-07-29 07:00] LABS: Hematocrit 31.5 % (42.0-52.0); Mean Cell Volume 101.3 fl (78-100); Mean Corpuscular Hemoglobin 32.2 pg (27-31); Mean Corpuscular Hgb Conc 31.7 g/dl (32-36); Mean Platelet Volume 10.7 fl (8-11.3); Platelet Count 112 K/mm3 (150-450); Red Blood Count 3.11 M/mm3 (4.7-6.0); Red Cell Distribution Width 16.7 % (11.5-14.0); White Blood Count 10.6 K/mm3 (4.0-10.5)
[2020-07-29 07:02] LABS: Total Cells Counted 100
[2020-07-29 07:14] LABS: Albumin * 1.7 gm/dl (3.4-5.0); Anion Gap 7.8 mmol/L (6.8-13.8); BUN/Creatinine Ratio 14.8 (9.0-21.6); Bilirubin, Total 0.6 mg/dL (0.0-1.1); Ca. Corrected For Albumin 8.6 mg/dL (8.4-10.2); Calcium * 7.1 mg/dL (7.9-10.9); Carbon Dioxide 28.3 mmol/L (24-32.6); Potassium 4.1 mmol/L (3.4-4.6); Total Protein 5.2 gm/dL (6.2-8.2)
[2020-07-29 07:33] LABS: Band 2 % (0-2.0); Lymphocyte 6 % (20-51); Monocyte 4 % (0-9); Neutrophil 88 % (42-75); Neutrophil # 9.3 K/mm3 (1.3-6.0)
[2020-07-29 07:37] LABS: Anisocytosis 2+; Polychromasia 1+
[2020-07-29 07:38] LABS: Hypersegmented Polys 1+; Platelet Estimate Normal (NORMAL)
[2020-07-29] MEDS: PANTOPRAZOLE SODIUM 40 MG in NORMAL SALINE 100 ML IV SCH ×2 (08:49→21:04)
[2020-07-29] MEDS: ONDANSETRON HCL/PF 2 MG/ML VIAL IV PRN ×3 (12:11→20:44)
[2020-07-29] MEDS: PROMETHAZINE HCL 25 MG TABLET PO PRN (16:24)
--- NOTE | 2020-07-29 17:24 | PN ---
Subjective - Date and Time Seen Date: 07/29/20 Time: 17:24 Subjective Narrative: Patient does not feel well today, has been nauseated and has small bouts of emesis (nonbloody). Has had poor appetite. No bowel movements for the last few days though is passing gas. His abdomen is slightly distended and mildly tender to the touch diffusely. From a respiratory standpoint patient continues to improve, currently on 4 L nasal cannula which is the best he has been out since has been here. He denies cough but does have some shortness of breath with activity. Blood work significant improved, white count down to 10.6. This is day 7 of antibiotics which will be stopped. Rest of his lab work appropriate. Aside from requiring 4 L nasal cannula his other vital signs are stable. He is frustrated with how he is progressing. Still not want to see general surgery or have a CT scan of his belly at this time. No further bloody stools or hematemesis since Protonix drip and then began on IV Protonix twice daily. Denies abdominal pain in general. Objective - Review of Systems Generalized/Overall Review: Reports: Weakness. Denies: Chills, Fever EENTM: Reports: No Symptoms Reported Respiratory: Reports: Shortness of Breath. Denies: Cough Cardiac: Denies: No Symptoms Reported Abdominal: Reports: Nausea, Vomiting, Abdominal Pain - minimal Genitourinary Symptoms: Reports: No Symptoms Reported Musculoskeletal Complaints: Reports: Back Pain Neurological: Reports: No Symptoms Reported Skin: Reports: No Symptoms Reported Endocrine: Reports: No Symptoms Reported - Vitals Vitals: Last Vital Signs Temp 36.5 C 07/29/20 15:13 Pulse 93 07/29/20 15:13 Resp 17 07/29/20 15:13 BP 138/80 07/29/20 15:13 Pulse Ox 97 07/29/20 15:13 - Abnormal Lab Findings Abnormal Lab Findings: Abnormal Lab Results 07/29/20 07/29/20 Range/Units 06:45 06:45 WBC 10.6 H (4.0-10.5) K/mm3 RBC 3.11 L (4.7-6.0) M/mm3 Hgb 10.0 L (13.5-18.0) gm/dL Hct 31.5 L (42.0-52.0) % MCV 101.3 H (78-100) fl MCH 32.2 H (27-31) pg MCHC 31.7 L (32-36) g/dl RDW 16.7 H (11.5-14.0) % Plt Count 112 L (150-450) K/mm3 Neutrophils % (Manual) 88 H (42-75) % Lymphocytes % (Manual) 6 L (20-51) % Neutrophils # (Manual) 9.3 H (1.3-6.0) K/mm3 Lymphocytes # (Manual) 0.6 L (1.5-3.5) k/mm3 Random Glucose 119 H (70-110) mg/dL Calcium 7.1 L (7.9-10.9) mg/dL Alkaline Phosphatase 40 L (50-170) U/L Total Protein 5.2 L (6.2-8.2) gm/dL Albumin 1.7 L (3.4-5.0) gm/dl - Exam Constitutional: Present: Alert, Oriented x3, Mild distress - nausea Respiratory: Present: lungs clear, normal breath sounds Cardiovascular/Chest: Present: regular rate, rhythm, no murmur Abdomen: Present: nontender, hypoactive. Absent: nondistended - mildly distended again, guarding, rigidity Skin Exam: Present: normal color, warm/dry Appearance: Present: appropriate appearance, appropriate insight Eye contact: Present: cooperative Thoughts: Present: normal thought pattern Assessment/Plan Plan Narrative: #1 Covidstabilizing. No longer on Decadron or Lovenox. No longer requiring high flow oxygen to maintain sats. Breathing easier, lung exam also improved. Overall for breathing standpoint patient states he feels much better. He has been afebrile. Hypoxia has resolved with oxygen via nasal cannula. #2 GI bleed, blood loss anemiahemoglobin stabilized at 10 for the last 4 days after receiving 2 units transfusion packed red blood cells. No longer having bloody bowel movements or hematemesis. Patient was on antibiotics for suspected abdominal infection following his GI bleed when he had an elevated white count at 33, this is trended down to 10.6 today. Antibiotics are being discontinued today. Patient's vital signs been stable has been afebrile since being here aside from the oxygen requirements. #3 suspected small bowel obstructionunsure if he has this. Patient does not want to scope, patient does not want CT scan of his belly. We ordered a KUB of his abdomen to look for any abnormalities and fluid air patterns or distention of his loops of bowel. Patient has not had an NG tube in for the last 6 days and not had to have to put it back in but if he does not decompress some and this may be needed. Wondering if his high flow oxygen for so long has caused him to retain air in his bowels which could explain his distention as he does not look like a small bowel obstruction kind of patient. He is passing gas quite a bit today but he is nauseated and does not want to eat either. Discussed this with on-call doc who knows to have NG tube placed if he gets worse from a clinical picture. #4 muscular deconditioning secondary to Covid infection, generalized weaknesspatient to nauseated throughout the day to complete physical therapy. Patient needs physical therapy and needs to get stronger if he wants to get out of here. Overall clinically he is starting to improve making strides but he is now getting up out of bed moving and refusing to exercise which will help him significantly. Patient refused therapy today due to being nauseated, he does have Zofran and Phenergan ordered which does help which will be scheduled for him for the next couple days. #5 hypertensionwell controlled #6 GERDwell-controlled with IV Protonix twice daily dosing. Patient may need to plan on going to short-term nursing facility versus inpatient rehab once his nausea is better as I do not think this patient can be able to go home and care for himself appropriately. Patient is not excited about this. We will have case management look into this tomorrow. 45 minutes critical care time spent with patient today - Problems/Diagnosis (1) Blood loss anemia Problem: Acute (2) GI bleed Problem: Suspected Qualifiers: GI bleed type/associated pathology: gastric ulcer Qualified Code(s): K25.4 - Chronic or unspecified gastric ulcer with hemorrhage (3) COVID-19 Problem: Acute (4) Hypoxia Problem: Resolved (5) AAA (abdominal aortic aneurysm) Problem: Chronic (6) HTN (hypertension) Problem: Chronic (7) GERD (gastroesophageal reflux disease) Problem: Chronic (8) Small bowel obstruction Problem: Suspected (9) Urinary retention Problem: Resolved (10) Constipation Problem: Resolved Qualifiers: Constipation type: slow transit constipation Qualified Code(s): K59.01 - Slow transit constipation
[2020-07-29] MEDS ORDERED: SODIUM PHOSPHATE,MONO-DIBASIC 1 ENEMA BTL RC ONE (18:00)
[2020-07-30] MEDS: ONDANSETRON HCL/PF 2 MG/ML VIAL IV PRN (02:12)
[2020-07-30] MEDS: PANTOPRAZOLE SODIUM 40 MG in NORMAL SALINE 100 ML IV SCH ×2 (10:34→20:13)
[2020-07-30] MEDS: METOCLOPRAMIDE HCL 5 MG/ML VIAL IV PRN ×2 (10:37→21:19)
[2020-07-30 12:17] LABS: Albumin * 1.9 gm/dl (3.4-5.0); Anion Gap 11.7 mmol/L (6.8-13.8); BUN/Creatinine Ratio 16.3 (9.0-21.6); Bilirubin, Total 0.6 mg/dL (0.0-1.1); Ca. Corrected For Albumin 9.3 mg/dL (8.4-10.2); Calcium * 7.9 mg/dL (7.9-10.9); Carbon Dioxide 27.1 mmol/L (24-32.6); Potassium 3.8 mmol/L (3.4-4.6); Total Protein 5.6 gm/dL (6.2-8.2)
[2020-07-30 12:24] LABS: Hematocrit 33.5 % (42.0-52.0); Hemoglobin 10.5 gm/dL (13.5-18.0); Mean Corpuscular Hemoglobin 32.6 pg (27-31); Mean Corpuscular Hgb Conc 31.3 g/dl (32-36); Mean Platelet Volume 11.3 fl (8-11.3); Neutrophil # 11.2 K/mm3 (1.3-6.0); Neutrophil % 86.1 % (42-75.0); Platelet Count 106 K/mm3 (150-450); Red Blood Count 3.22 M/mm3 (4.7-6.0); Red Cell Distribution Width 17.1 % (11.5-14.0); White Blood Count 12.9 K/mm3 (4.0-10.5)
[2020-07-30] MEDS: POTASSIUM CHLORIDE 20 MEQ in DEXTROSE 5%-0.5 NORMAL SALINE 990 ML IV SCH (14:04)
--- NOTE | 2020-07-30 17:22 | PN ---
Subjective - Date and Time Seen Date: 07/30/20 Time: 10:28 Subjective Narrative: He states he does not feel well. He vomited last night. Objective - Review of Systems Generalized/Overall Review: Denies: Fever Respiratory: Reports: Shortness of Breath Cardiac: Denies: Chest Pain Abdominal: Denies: Abdominal Pain Misc: All systems neg except as marked - Vitals Vitals: Last Vital Signs Temp 37.0 C 07/30/20 14:26 Pulse 89 07/30/20 14:26 Resp 20 07/30/20 14:26 BP 125/63 07/30/20 14:26 Pulse Ox 95 07/30/20 16:32 - Abnormal Lab Findings Abnormal Lab Findings: Abnormal Lab Results 07/30/20 07/30/20 Range/Units 11:56 11:56 WBC 12.9 H D (4.0-10.5) K/mm3 RBC 3.22 L (4.7-6.0) M/mm3 Hgb 10.5 L (13.5-18.0) gm/dL Hct 33.5 L (42.0-52.0) % MCV 104.0 H (78-100) fl MCH 32.6 H (27-31) pg MCHC 31.3 L (32-36) g/dl RDW 17.1 H (11.5-14.0) % Plt Count 106 L (150-450) K/mm3 Immature Gran % (Auto) 1.50 H (0.001-0.429) % Immature Gran # (Auto) 0.19 H (0.000-0.0310) K/mm3 Neutrophils % 86.1 H (42-75.0) % Lymphocytes % 6.6 L (20-51) % Neutrophils # 11.2 H (1.3-6.0) K/mm3 Lymphocytes # 0.85 L (1.5-3.5) k/mm3 Random Glucose 132 H (70-110) mg/dL ALT 17 L (19-67) U/L Alkaline Phosphatase 32 L (50-170) U/L Total Protein 5.6 L (6.2-8.2) gm/dL Albumin 1.9 L (3.4-5.0) gm/dl - Exam Constitutional: Present: Alert, Well developed, Well nourished, No distress, Elderly ENT Exam: Present: hearing grossly normal Neck: Present: non-tender, supple. Absent: lymphadenopathy (R), lymphadenopathy (L) Cardiovascular/Chest: Present: normal peripheral pulses, regular rate, rhythm, no edema, no murmur Abdomen: Present: Normal bowel sounds, nontender, distended Extremity: Present: no pedal edema Skin Exam: Present: normal color, warm/dry Neurologic: Present: alert, normal mood/affect Appearance: Present: appropriate appearance Eye contact: Present: cooperative Thoughts: Present: normal mood /affect Assessment/Plan Plan Narrative: 80-year-old male with a past medical history of anemia, GERD, hypertension, obesity, osteoporosis, hyperlipidemia, Sebastian's esophagus, arthritis, B12 deficiency, abdominal aortic aneurysm presents with COVID-19 and was initially placed on BiPAP. He has been tapered down and is currently on 5 L of oxygen via nasal cannula. During his hospital emaciation he developed a GI bleed received 2 units of blood. Of blood count is currently stable. He developed abdominal discomfort, nausea and vomiting. He was treated with a course of ciprofloxacin and Flagyl. Abdominal x-ray shows significant distention of his stomach likely secondary from prolonged high flow oxygen supplementation and BiPAP. I spoke with Dr. Cain regarding this patient and he reviewed the patient's chart and imaging. He does not feel the patient needs a surgical consult at this time. Per the abdominal x-ray he feels there is no small bowel obstruction because gas is moving through to the colon. He also does not think we need to pursue CT abdomen pelvis at this time. He believes that the gas in the abdomen is likely secondary to swallowing air from the BiPAP and oxygen supplementation. Plan #1 discontinue promethazine and start him on Reglan for nausea #2 continue with IV fluid hydration until he is tolerating oral intake #3 encourage ambulation #4 Taper down to baseline oxygen #5 CBC and CMP in the morning - Problems/Diagnosis (1) Hypoxia Problem: Resolved (2) Abdominal distension (gaseous) Problem: Acute (3) AAA (abdominal aortic aneurysm) Problem: Chronic (4) HTN (hypertension) Problem: Chronic (5) GERD (gastroesophageal reflux disease) Problem: Chronic (6) Acute respiratory failure due to COVID-19 Problem: Acute (7) GI bleed Problem: Suspected Qualifiers: GI bleed type/associated pathology: gastric ulcer Qualified Code(s): K25.4 - Chronic or unspecified gastric ulcer with hemorrhage (8) Physical deconditioning Problem: Acute (9) Poor appetite Problem: Acute (10) Nausea and vomiting Problem: Acute
[2020-07-31] MEDS: POTASSIUM CHLORIDE 20 MEQ in DEXTROSE 5%-0.5 NORMAL SALINE 990 ML IV SCH ×2 (03:08→17:34)
[2020-07-31 06:36] LABS: Hematocrit 30.7 % (42.0-52.0); Hemoglobin 9.3 gm/dL (13.5-18.0); Mean Corpuscular Hemoglobin 32.4 pg (27-31); Mean Corpuscular Hgb Conc 30.3 g/dl (32-36); Mean Platelet Volume 11.1 fl (8-11.3); Neutrophil # 9.6 K/mm3 (1.3-6.0); Neutrophil % 83.6 % (42-75.0); Platelet Count 100 K/mm3 (150-450); Red Blood Count 2.87 M/mm3 (4.7-6.0); Red Cell Distribution Width 17.1 % (11.5-14.0); White Blood Count 11.5 K/mm3 (4.0-10.5)
[2020-07-31 06:57] LABS: Albumin * 1.6 gm/dl (3.4-5.0); BUN/Creatinine Ratio 39.3 (9.0-21.6); Bilirubin, Total 0.5 mg/dL (0.0-1.1); Ca. Corrected For Albumin 8.4 mg/dL (8.4-10.2); Calcium * 6.8 mg/dL (7.9-10.9); Carbon Dioxide 21.6 mmol/L (24-32.6); Potassium 4.6 mmol/L (3.4-4.6); Total Protein 4.8 gm/dL (6.2-8.2)
[2020-07-31] MEDS: PANTOPRAZOLE SODIUM 40 MG in NORMAL SALINE 100 ML IV SCH ×2 (08:09→20:16)
--- NOTE | 2020-07-31 10:18 | PN ---
Subjective - Date and Time Seen Date: 07/31/20 Time: 09:53 Subjective Narrative: He continues to have shortness of breath and his oxygen saturation dropped when he got out of the bed sit in the recliner. He is currently now on 2 L of oxygen via nonrebreather. Staff states he has had 4 black tarry bowel movements today. His nausea has improved. Objective - Review of Systems Generalized/Overall Review: Denies: Fever Respiratory: Reports: Shortness of Breath Cardiac: Denies: Chest Pain Abdominal: Reports: Melena. Denies: Abdominal Pain Misc: All systems neg except as marked - Vitals Vitals: Last Vital Signs Temp 36.9 C 07/31/20 06:00 Pulse 95 07/31/20 06:00 Resp 22 H 07/31/20 06:00 BP 130/70 07/31/20 06:00 Pulse Ox 93 07/31/20 06:00 - Abnormal Lab Findings Abnormal Lab Findings: Abnormal Lab Results 07/30/20 07/30/20 07/31/20 Range/Units 11:56 11:56 06:30 WBC 12.9 H D 11.5 H (4.0-10.5) K/mm3 RBC 3.22 L 2.87 L (4.7-6.0) M/mm3 Hgb 10.5 L 9.3 L (13.5-18.0) gm/dL Hct 33.5 L 30.7 L (42.0-52.0) % MCV 104.0 H 107.0 H (78-100) fl MCH 32.6 H 32.4 H (27-31) pg MCHC 31.3 L 30.3 L (32-36) g/dl RDW 17.1 H 17.1 H (11.5-14.0) % Plt Count 106 L 100 L (150-450) K/mm3 Immature Gran % (Auto) 1.50 H 1.20 H (0.001-0.429) % Immature Gran # (Auto) 0.19 H 0.14 H (0.000-0.0310) K/mm3 Neutrophils % 86.1 H 83.6 H (42-75.0) % Lymphocytes % 6.6 L 8.3 L (20-51) % Neutrophils # 11.2 H 9.6 H (1.3-6.0) K/mm3 Lymphocytes # 0.85 L 0.95 L (1.5-3.5) k/mm3 Chloride (97-106) mmol/L Carbon Dioxide (24-32.6) mmol/L BUN (6-23) mg/dL Est GFR (Non-Af Amer) (60-130) mL/min BUN/Creatinine Ratio (9.0-21.6) Random Glucose 132 H (70-110) mg/dL Calcium (7.9-10.9) mg/dL ALT 17 L (19-67) U/L Alkaline Phosphatase 32 L (50-170) U/L Total Protein 5.6 L (6.2-8.2) gm/dL Albumin 1.9 L (3.4-5.0) gm/dl 07/31/20 Range/Units 06:30 WBC (4.0-10.5) K/mm3 RBC (4.7-6.0) M/mm3 Hgb (13.5-18.0) gm/dL Hct (42.0-52.0) % MCV (78-100) fl MCH (27-31) pg MCHC (32-36) g/dl RDW (11.5-14.0) % Plt Count (150-450) K/mm3 Immature Gran % (Auto) (0.001-0.429) % Immature Gran # (Auto) (0.000-0.0310) K/mm3 Neutrophils % (42-75.0) % Lymphocytes % (20-51) % Neutrophils # (1.3-6.0) K/mm3 Lymphocytes # (1.5-3.5) k/mm3 Chloride 107 H (97-106) mmol/L Carbon Dioxide 21.6 L (24-32.6) mmol/L BUN 24 H D (6-23) mg/dL Est GFR (Non-Af Amer) 135 H D (60-130) mL/min BUN/Creatinine Ratio 39.3 H (9.0-21.6) Random Glucose 113 H (70-110) mg/dL Calcium 6.8 L (7.9-10.9) mg/dL ALT 17 L (19-67) U/L Alkaline Phosphatase 34 L (50-170) U/L Total Protein 4.8 L (6.2-8.2) gm/dL Albumin 1.6 L (3.4-5.0) gm/dl - Exam Constitutional: Present: Alert, Cooperative, Well developed, Well nourished, No distress ENT Exam: Present: hearing grossly normal Neck: Present: supple. Absent: lymphadenopathy (R), lymphadenopathy (L) Respiratory: Present: lungs clear, no respiratory distress, no accessory muscle use, No wheezing. Absent: crackles, rhonchi Cardiovascular/Chest: Present: normal peripheral pulses, regular rate, rhythm, no murmur, edema - 1+ pitting bilateral lower extremities Abdomen: Present: Normal bowel sounds, soft Extremity: Present: lower extremity edema - 1+ pitting bilateral lower extremities Skin Exam: Present: normal color, warm/dry Appearance: Present: appropriate appearance Eye contact: Present: cooperative Thoughts: Present: normal mood /affect Assessment/Plan Plan Narrative: 80-year-old male with a past medical history of anemia, GERD, hypertension, obesity, osteoporosis, hyperlipidemia, Sebastian's esophagus, arthritis, B12 deficiency, abdominal aortic aneurysm presents with COVID-19 and was initially placed on BiPAP. He has been tapered down and is currently on 5 L of oxygen via nasal cannula. During his hospital emaciation he developed a GI bleed received 2 units of blood. Of blood count is currently stable. He developed abdominal discomfort, nausea and vomiting. He was treated with a course of ciprofloxacin and Flagyl. Abdominal x-ray shows significant distention of his stomach likely secondary from prolonged high flow oxygen supplementation and BiPAP. I spoke with Dr. Cain regarding this patient and he reviewed the patient's chart and imaging. He does not feel the patient needs a surgical consult at this time. Per the abdominal x-ray he feels there is no small bowel obstruction because gas is moving through to the colon. He also does not think we need to pursue CT abdomen pelvis at this time. He believes that the gas in the abdomen is likely secondary to swallowing air from the BiPAP and oxygen supplementation. Patient's respiratory status declined today when he attempted to get out of bed and sit in the recliner. His oxygen saturations dropped and he was placed on high flow oxygen at 15 L via oxygen mask. He also had 4 episodes of black tarry stools today. Abdominal distention has improved. Continue with Protonix, and repeat CBC in the morning. Plan #1 Continue with Reglan for nausea #2 continue with IV fluid hydration until oral intake improves #3 encourage ambulation, PT #4 Taper down to baseline oxygen #5 CBC and CMP in the morning #6 repeat chest x-ray today #7 start Levaquin 750 mg IV, day 1 Chest x-ray is positive for pneumonia/pneumonitis. He may have a component of bacterial pneumonia superimposed on the viral pneumonia. I will start him on Levaquin 750 mg IV daily especially since his best respiratory status declined today. - Problems/Diagnosis (1) Hypoxia Problem: Resolved (2) Abdominal distension (gaseous) Problem: Acute (3) AAA (abdominal aortic aneurysm) Problem: Chronic (4) HTN (hypertension) Problem: Chronic (5) GERD (gastroesophageal reflux disease) Problem: Chronic (6) Acute respiratory failure due to COVID-19 Problem: Acute (7) GI bleed Problem: Suspected Qualifiers: GI bleed type/associated pathology: gastric ulcer Qualified Code(s): K25.4 - Chronic or unspecified gastric ulcer with hemorrhage (8) Physical deconditioning Problem: Acute (9) Poor appetite Problem: Acute (10) Nausea and vomiting Problem: Acute
[2020-07-31] MEDS: LEVOFLOXACIN IN DEXTROSE 5 % 750 MG/150 ML BAG IV SCH (14:42)
[2020-07-31] MEDS: METOCLOPRAMIDE HCL 5 MG/ML VIAL IV PRN (20:48)
[2020-08-01 06:40] LABS: Hematocrit 30.3 % (42.0-52.0); Hemoglobin 9.3 gm/dL (13.5-18.0); Mean Cell Volume 105.2 fl (78-100); Mean Corpuscular Hemoglobin 32.3 pg (27-31); Mean Corpuscular Hgb Conc 30.7 g/dl (32-36); Mean Platelet Volume 11.3 fl (8-11.3); Neutrophil # 11.2 K/mm3 (1.3-6.0); Neutrophil % 85.5 % (42-75.0); Platelet Count 105 K/mm3 (150-450); Red Blood Count 2.88 M/mm3 (4.7-6.0); Red Cell Distribution Width 17.3 % (11.5-14.0); White Blood Count 13.1 K/mm3 (4.0-10.5)
[2020-08-01 06:55] LABS: Albumin * 1.8 gm/dl (3.4-5.0); Anion Gap 6.5 mmol/L (6.8-13.8); BUN/Creatinine Ratio 21.7 (9.0-21.6); Bilirubin, Total 0.6 mg/dL (0.0-1.1); Ca. Corrected For Albumin 8.7 mg/dL (8.4-10.2); Calcium * 7.3 mg/dL (7.9-10.9); Carbon Dioxide 28.6 mmol/L (24-32.6); Potassium 4.1 mmol/L (3.4-4.6); Total Protein 5.6 gm/dL (6.2-8.2)
[2020-08-01] MEDS: POTASSIUM CHLORIDE 20 MEQ in DEXTROSE 5%-0.5 NORMAL SALINE 990 ML IV SCH (08:30)
[2020-08-01] MEDS: PANTOPRAZOLE SODIUM 40 MG in NORMAL SALINE 100 ML IV SCH ×2 (08:30→21:28)
--- NOTE | 2020-08-01 10:52 | PN ---
Subjective - Date and Time Seen Date: 08/01/20 Time: 09:15 Subjective Narrative: He continues to have short of breath and require oxygen supplementation. He is having minimal oral intake and has drunk some fluids tried Jell-O. He was out of bed most of the day yesterday sitting in the recliner. No more episodes of black tarry stool, abdominal distention and nausea and vomiting have improved Objective - Review of Systems Generalized/Overall Review: Denies: Fever Respiratory: Reports: Shortness of Breath Cardiac: Denies: Chest Pain Abdominal: Denies: Nausea, Vomiting, Abdominal Pain Misc: All systems neg except as marked - Vitals Vitals: Last Vital Signs Temp 36.8 C 08/01/20 06:00 Pulse 98 08/01/20 06:00 Resp 22 H 08/01/20 06:00 BP 143/63 08/01/20 06:00 Pulse Ox 96 08/01/20 06:00 - Abnormal Lab Findings Abnormal Lab Findings: Abnormal Lab Results 08/01/20 08/01/20 Range/Units 06:37 06:37 WBC 13.1 H (4.0-10.5) K/mm3 RBC 2.88 L (4.7-6.0) M/mm3 Hgb 9.3 L (13.5-18.0) gm/dL Hct 30.3 L (42.0-52.0) % MCV 105.2 H (78-100) fl MCH 32.3 H (27-31) pg MCHC 30.7 L (32-36) g/dl RDW 17.3 H (11.5-14.0) % Plt Count 105 L (150-450) K/mm3 Immature Gran % (Auto) 1.70 H (0.001-0.429) % Immature Gran # (Auto) 0.22 H (0.000-0.0310) K/mm3 Neutrophils % 85.5 H (42-75.0) % Lymphocytes % 6.9 L (20-51) % Neutrophils # 11.2 H (1.3-6.0) K/mm3 Lymphocytes # 0.91 L (1.5-3.5) k/mm3 Anion Gap 6.5 L (6.8-13.8) mmol/L BUN/Creatinine Ratio 21.7 H (9.0-21.6) Random Glucose 132 H (70-110) mg/dL Calcium 7.3 L (7.9-10.9) mg/dL ALT 13 L (19-67) U/L Alkaline Phosphatase 37 L (50-170) U/L Total Protein 5.6 L (6.2-8.2) gm/dL Albumin 1.8 L (3.4-5.0) gm/dl - Exam Constitutional: Present: Alert, Cooperative, Well developed, Well nourished, Elderly ENT Exam: Present: hearing grossly normal Neck: Present: non-tender, supple. Absent: lymphadenopathy (R), lymphadenopathy (L) Respiratory: Present: lungs clear, no accessory muscle use - Bilateral lung bases, crackles, No wheezing. Absent: rhonchi Cardiovascular/Chest: Present: normal peripheral pulses, regular rate, rhythm, no murmur, edema - 1+ pitting bilateral lower extremities Abdomen: Present: Normal bowel sounds, soft, nontender Extremity: Present: lower extremity edema - 1+ pitting bilateral lower extremities Skin Exam: Present: normal color, warm/dry Neurologic: Present: alert, normal mood/affect Appearance: Present: appropriate appearance, appropriate insight Eye contact: Present: cooperative Thoughts: Present: normal mood /affect Assessment/Plan Plan Narrative: 80-year-old male with a past medical history of anemia, GERD, hypertension, obesity, osteoporosis, hyperlipidemia, Sebastian's esophagus, arthritis, B12 deficiency, abdominal aortic aneurysm presents with COVID-19 and was initially placed on BiPAP. He has been tapered down and is currently on 5 L of oxygen via nasal cannula. During his hospital emaciation he developed a GI bleed received 2 units of blood. Of blood count is currently stable. He developed abdominal discomfort, nausea and vomiting. He was treated with a course of ciprofloxacin and Flagyl. Abdominal x-ray shows significant distention of his stomach likely secondary from prolonged high flow oxygen supplementation and BiPAP. Patient's respiratory status continues to be poor. He decompensates with minimal activity. No new episodes of black tarry stools today. Abdominal distention has improved. Chest x-ray on July 31, 2020 positive for pneumonia/pneumonitis. He may have a component of bacterial pneumonia superimposed on the viral pneumonia. Continue with Levaquin 750 mg IV daily since his respiratory status is not improving. Plan #1 Continue with Reglan for nausea #2 continue with IV fluid hydration until oral intake improves #3 encourage ambulation, PT #4 Taper down to baseline oxygen #5 CBC and CMP in the morning #6 Continue Levaquin 750 mg IV, day 2 - Problems/Diagnosis (1) Hypoxia Problem: Resolved (2) Abdominal distension (gaseous) Problem: Acute (3) AAA (abdominal aortic aneurysm) Problem: Chronic (4) HTN (hypertension) Problem: Chronic (5) GERD (gastroesophageal reflux disease) Problem: Chronic (6) Acute respiratory failure due to COVID-19 Problem: Acute (7) GI bleed Problem: Suspected Qualifiers: GI bleed type/associated pathology: gastric ulcer Qualified Code(s): K25.4 - Chronic or unspecified gastric ulcer with hemorrhage (8) Physical deconditioning Problem: Acute (9) Poor appetite Problem: Acute (10) Nausea and vomiting Problem: Acute
[2020-08-01] MEDS: LEVOFLOXACIN IN DEXTROSE 5 % 750 MG/150 ML BAG IV SCH (13:56)
[2020-08-01] MEDS: METOCLOPRAMIDE HCL 5 MG/ML VIAL IV PRN (16:58)
[2020-08-02] MEDS: POTASSIUM CHLORIDE 20 MEQ in DEXTROSE 5%-0.5 NORMAL SALINE 990 ML IV SCH ×2 (00:56→14:57)
[2020-08-02 06:42] LABS: Hemoglobin 8.8 gm/dL (13.5-18.0); Mean Cell Volume 104.9 fl (78-100); Mean Corpuscular Hgb Conc 31.4 g/dl (32-36); Mean Platelet Volume 11.4 fl (8-11.3); Neutrophil % 84.2 % (42-75.0); Platelet Count 101 K/mm3 (150-450); Red Blood Count 2.67 M/mm3 (4.7-6.0); Red Cell Distribution Width 17.5 % (11.5-14.0); White Blood Count 11.9 K/mm3 (4.0-10.5)
[2020-08-02 06:51] LABS: Albumin * 1.6 gm/dl (3.4-5.0); BUN/Creatinine Ratio 13.2 (9.0-21.6); Bilirubin, Total 0.7 mg/dL (0.0-1.1); Ca. Corrected For Albumin 8.8 mg/dL (8.4-10.2); Calcium * 7.2 mg/dL (7.9-10.9); Carbon Dioxide 28.9 mmol/L (24-32.6); Potassium 3.9 mmol/L (3.4-4.6); Total Protein 5.4 gm/dL (6.2-8.2)
[2020-08-02] MEDS: METOCLOPRAMIDE HCL 5 MG/ML VIAL IV PRN (08:37)
[2020-08-02] MEDS: PANTOPRAZOLE SODIUM 40 MG in NORMAL SALINE 100 ML IV SCH ×2 (08:37→21:43)
[2020-08-02] MEDS: LEVOFLOXACIN IN DEXTROSE 5 % 750 MG/150 ML BAG IV SCH (14:56)
[2020-08-02] MEDS ORDERED: POTASSIUM PHOS,M-BASIC-D-BASIC 18 MM, ELECTROLYTE SOLUTION,INJ 20 ML, MULTIVIT INFUSN,A... IV SCH ×6 (17:30)
[2020-08-02] MEDS ORDERED: MULTIVIT INFUSN ADULT K IV SCH ×4 (18:00)
[2020-08-02] MEDS ORDERED: [UNRECOGNIZED DRUG - OTHER] IV SCH ×4 (18:00)
[2020-08-02] MEDS ORDERED: POTASSIUM PHOS M BASIC D BASIC IV SCH ×4 (18:00)
[2020-08-02 18:02] LABS: Albumin * 1.6 gm/dl (3.4-5.0); Anion Gap 8.2 mmol/L (6.8-13.8); BUN/Creatinine Ratio 15.3 (9.0-21.6); Bilirubin, Total 0.8 mg/dL (0.0-1.1); Ca. Corrected For Albumin 9.3 mg/dL (8.4-10.2); Calcium * 7.7 mg/dL (7.9-10.9); Carbon Dioxide 28.7 mmol/L (24-32.6); Magnesium 1.8 mg/dL (1.2-2.8); Phosphorus 2.6 mg/dL (2.2-4.2); Potassium 3.9 mmol/L (3.4-4.6); Total Protein 5.1 gm/dL (6.2-8.2)
[2020-08-02] MEDS: INSULIN LISPRO 100 UNITS/ML VIAL SC SCH ×2 (18:11→21:40)
--- NOTE | 2020-08-02 19:23 | ANES ---
Anesthesia Procedure Note Procedure Note: ANESTHESIA PROCEDURE NOTE Date of procedure: 08/02/2020. Time of procedure: 1814. Performed by: Hemant Pollard CRNA Service Station Operator: None . Preprocedure diagnosis: Respiratory failure. Covid positive. Need for long- term central IV access. Post procedure diagnosis: Same. Procedure: PICC line insertion Indications: Need for long-term IV access. Findings: Patient's right antecubital fossa was prepped and draped sterilely. 22-gauge Angiocath was used for venous access. Guidewire was inserted without difficulty. Dual-lumen PICC line advanced but met resistance at approximately 20 cm. Both lumens flush and aspirate easily. PICC line was taped into place to be used as IV access. Patient's left antecubital fossa was prepped and draped sterilely. 22-gauge Angiocath IV was used for venous access. Guidewire was inserted without difficulty. Dual-lumen PICC line advanced without obstruc tion or resistance. PICC line was secured into place. Chest x-ray was ordered. EBL: Minimal. Fluids: N/A. Specimen: N/A. Post procedure condition: The patient tolerated the procedure well. No c omplications were noted. Thank you for this consultation Hemant Pollard CRNA
--- NOTE | 2020-08-02 19:30 | PN ---
Subjective - Date and Time Seen Date: 08/02/20 Time: 19:18 Subjective Narrative: Patient states that he feels like crap. Patient is starting to understand how serious his situation is, wishes to change his CODE STATUS to DNR. Patient with minimal oral intake, worsening over the last 5 to 7 days. Patient's vital signs stable other than his oxygen requirement. Patient desats quickly when he gets out of bed or has any sort of movement. Today he dropped from 97 down to low 70s just from going to the bed to sit in the chair and had a prolonged recovery time to get his sats back up with a nonrebreather. Patient endorses being tired. Patient currently on Levaquin day 3 for possible superimposed bacterial pneumonia. Patient's white count mildly elevated still but not near the levels that was in his early admission. Objective - Review of Systems Generalized/Overall Review: Reports: Weakness, Malaise. Denies: Chills, Fever EENTM: Reports: No Symptoms Reported Respiratory: Reports: Shortness of Breath. Denies: Cough Cardiac: Reports: No Symptoms Reported Abdominal: Reports: Nausea. Denies: Vomiting, Hematemesis, Abdominal Pain Musculoskeletal Complaints: Reports: Back Pain Neurological: Reports: No Symptoms Reported Skin: Reports: No Symptoms Reported - Vitals Vitals: Last Vital Signs Temp 36.8 C 08/02/20 14:11 Pulse 104 H 08/02/20 13:12 Resp 18 08/02/20 13:12 BP 127/69 08/02/20 13:12 Pulse Ox 97 08/02/20 17:02 - Abnormal Lab Findings Abnormal Lab Findings: Abnormal Lab Results 08/02/20 08/02/20 08/02/20 Range/Units 06:10 06:10 17:40 WBC 11.9 H (4.0-10.5) K/mm3 RBC 2.67 L (4.7-6.0) M/mm3 Hgb 8.8 L (13.5-18.0) gm/dL Hct 28.0 L (42.0-52.0) % MCV 104.9 H (78-100) fl MCH 33.0 H (27-31) pg MCHC 31.4 L (32-36) g/dl RDW 17.5 H (11.5-14.0) % Plt Count 101 L (150-450) K/mm3 MPV 11.4 H (8-11.3) fl Immature Gran % (Auto) 1.70 H (0.001-0.429) % Immature Gran # (Auto) 0.20 H (0.000-0.0310) K/mm3 Neutrophils % 84.2 H (42-75.0) % Lymphocytes % 7.9 L (20-51) % Neutrophils # 10.0 H (1.3-6.0) K/mm3 Lymphocytes # 0.94 L (1.5-3.5) k/mm3 Random Glucose 120 H 128 H (70-110) mg/dL Calcium 7.2 L 7.7 L (7.9-10.9) mg/dL ALT 12 L 12 L (19-67) U/L Alkaline Phosphatase 39 L 29 L (50-170) U/L Total Protein 5.4 L 5.1 L (6.2-8.2) gm/dL Albumin 1.6 L 1.6 L (3.4-5.0) gm/dl - Exam Constitutional: Present: Alert, Oriented x3 ENT Exam: Present: hearing grossly normal Neck: Present: non-tender, supple Respiratory: Present: lungs clear, decreased breath sounds. Absent: crackles, wheezing Cardiovascular/Chest: Present: regular rate, rhythm, no murmur Abdomen: Present: soft, nontender, nondistended Extremity: Present: lower extremity edema - Bilaterally, 2+ pitting midshin Skin Exam: Present: normal color, warm/dry Appearance: Present: appropriate appearance, appropriate insight Eye contact: Present: cooperative, good eye contact Thoughts: Present: normal thought pattern, normal mood /affect Assessment/Plan Plan Narrative: Patient with prolonged hospitalization (day 17) due to COVID-19. Respiratory status minimally improved since being here but still requiring high flow oxygen to maintain sats. Patient desats quickly with any kind of activity. Patient's clinical picture serious, discussed with him that there is a chance he will not survive through this. Patient wishes to be made DNR, this was agreed upon today and nurse will get proper paperwork signed. Patient does want to proceed with full treatment though, think about comfort measures. Discussed starting him on TPN due to his inability to feed himself and how malnourished is becoming. Most recent albumin was 1.6. Patient is starting the third space which you are seen abundantly in his legs. Patient is in agreement with TPN, anesthesia was consulted. PICC line placed and TPN will be started. Appropriate labs to be ordered including monitoring of magnesium, phosphorus, potassium. Insulin also ordered to maintain sugar levels. TPN to be started. From a GI standpoint patient appears stable. No further hematemesis or melano tic stools. No abdominal pain. Hemoglobin remained stable. We will continue to monitor with CBCs daily. Patient started on the Levaquin for possible superimposed bacterial pneumonia. This is day 3 was antibiotics. We will continue for total 7 days. Patient has been in the hospital now for so long that he is no longer requiring isolation in the ICU, will transfer to [facility]. Called and discussed all this with the patient's family today, they were appreciative of the information and stated understanding to their father's current situation. With him being downgraded from ICU care, patient's family cannot visit him. The rest the patient's vital signs are stable and he has been afebrile. Nurse will call questions or concerns. 1 hour critical care time spent with patient, developing treatment plan including TPN, adjusting CODE STATUS. - Problems/Diagnosis (1) Blood loss anemia Problem: Acute (2) GI bleed Problem: Suspected Qualifiers: GI bleed type/associated pathology: gastric ulcer Qualified Code(s): K25.4 - Chronic or unspecified gastric ulcer with hemorrhage (3) COVID-19 Problem: Acute (4) Hypoxia Problem: Resolved (5) AAA (abdominal aortic aneurysm) Problem: Chronic (6) HTN (hypertension) Problem: Chronic (7) GERD (gastroesophageal reflux disease) Problem: Chronic (8) Small bowel obstruction Problem: Suspected (9) Urinary retention Problem: Resolved (10) Constipation Problem: Resolved Qualifiers: Constipation type: slow transit constipation Qualified Code(s): K59.01 - Slow transit constipation (11) Malnourished Problem: Acute
[2020-08-03] MEDS: INSULIN LISPRO 100 UNITS/ML VIAL SC SCH ×4 (02:29→13:37)
[2020-08-03] MEDS: POTASSIUM CHLORIDE 20 MEQ in DEXTROSE 5%-0.5 NORMAL SALINE 990 ML IV SCH (03:28)
[2020-08-03] MEDS ORDERED: MORPHINE SULFATE 2 MG/ML DISP.SYRIN IV ONE ×2 (03:59→13:30)
[2020-08-03 07:09] LABS: Albumin * 1.7 gm/dl (3.4-5.0); Anion Gap 11.1 mmol/L (6.8-13.8); BUN/Creatinine Ratio 12.3 (9.0-21.6); Bilirubin, Total 0.8 mg/dL (0.0-1.1); Ca. Corrected For Albumin 9.1 mg/dL (8.4-10.2); Calcium * 7.6 mg/dL (7.9-10.9); Carbon Dioxide 28.2 mmol/L (24-32.6); Magnesium 1.9 mg/dL (1.2-2.8); Phosphorus 2.8 mg/dL (2.2-4.2); Potassium 4.3 mmol/L (3.4-4.6); Total Protein 5.5 gm/dL (6.2-8.2)
[2020-08-03] MEDS: PANTOPRAZOLE SODIUM 40 MG in NORMAL SALINE 100 ML IV SCH (08:37)
[2020-08-03] MEDS ORDERED: POTASSIUM PHOS M BASIC D BASIC IV SCH ×4 (09:00)
[2020-08-03] MEDS ORDERED: MULTIVIT INFUSN ADULT K IV SCH ×4 (09:00)
[2020-08-03] MEDS ORDERED: [UNRECOGNIZED DRUG - OTHER] IV SCH ×4 (09:00)
--- NOTE | 2020-08-03 12:22 | PN ---
Subjective - Date and Time Seen Date: 08/03/20 Time: 12:22 Subjective Narrative: Patient currently resting in bed. CPAP on to maintain sats in the upper 80s low 90s. Patient on day 4 of antibiotics for pneumonia. Patient states he does not feel well, he is tired. Discussed comfort measures again, patient wishes to think about this but he is leaning towards going this route. Objective - Review of Systems Generalized/Overall Review: Reports: Weakness. Denies: Chills, Fever EENTM: Reports: No Symptoms Reported Respiratory: Reports: Shortness of Breath. Denies: Cough Cardiac: Denies: Chest Pain, Edema Abdominal: Reports: No Symptoms Reported Genitourinary Symptoms: Reports: No Symptoms Reported Musculoskeletal Complaints: Reports: No Symptoms Reported - Vitals Vitals: Last Vital Signs Temp 36.7 C 08/03/20 07:02 Pulse 107 H 08/03/20 11:30 Resp 30 H 08/03/20 11:30 BP 134/70 08/03/20 07:02 Pulse Ox 92 L 08/03/20 11:30 - Abnormal Lab Findings Abnormal Lab Findings: Abnormal Lab Results 08/02/20 08/03/20 Range/Units 17:40 06:40 Random Glucose 128 H 139 H (70-110) mg/dL Calcium 7.7 L 7.6 L (7.9-10.9) mg/dL ALT 12 L 15 L (19-67) U/L Alkaline Phosphatase 29 L 32 L (50-170) U/L Total Protein 5.1 L 5.5 L (6.2-8.2) gm/dL Albumin 1.6 L 1.7 L (3.4-5.0) gm/dl - Exam Constitutional: Present: Alert, Oriented x3, Mild distress - tachypneic and tachycardic, mild respiratory distress while on cpap, Elderly Respiratory: Present: lungs clear, decreased breath sounds. Absent: crackles, rhonchi Cardiovascular/Chest: Present: no murmur, tachycardia Abdomen: Present: soft, nontender, nondistended Extremity: Present: lower extremity edema Skin Exam: Present: cool/dry Appearance: Present: appropriate insight Eye contact: Present: cooperative, good eye contact Thoughts: Present: normal thought pattern, normal mood /affect Assessment/Plan Plan Narrative: Overall the patient is not doing well when seen this morning (tachypnea and tachycardia, hypoxia) and we discussed comfort measures as he endorsed being tir ed and wanting to get off the CPAP machine. He wanted some time to make this decision this morning and wanted me to come back after he thought about it. Came back this evening and patient stated he was ready for comfort measures and wanted the CPAP off. Patient understood that he was going to pass, likely this evening and stated that he was ready for it. I called and discussed this with José (his son) when his decision was made who stated his appreciation and understanding. All medications were stopped aside from morphine and Ativan which was used to keep him comfortable. Patient passed comfortably this evening at 2037 secondary to Covid infection. Greater than 1 hour of critical care time was spent with patient, spent discussing his outcome and transitioning him from clinical management to comfort care. - Problems/Diagnosis (1) COVID-19 Problem: Acute (2) Hypoxia Problem: Resolved (3) GI bleed Problem: Suspected Qualifiers: GI bleed type/associated pathology: gastric ulcer Qualified Code(s): K25.4 - Chronic or unspecified gastric ulcer with hemorrhage (4) Blood loss anemia Problem: Acute (5) AAA (abdominal aortic aneurysm) Problem: Chronic (6) HTN (hypertension) Problem: Chronic (7) GERD (gastroesophageal reflux disease) Problem: Chronic (8) Small bowel obstruction Problem: Suspected (9) Urinary retention Problem: Resolved (10) Constipation Problem: Resolved Qualifiers: Constipation type: slow transit constipation Qualified Code(s): K59.01 - Slow transit constipation (11) Malnourished Problem: Acute
[2020-08-03] MEDS ORDERED: LORazepam 2 MG/ML DISP.SYRIN IV ONE (13:30)
[2020-08-03] MEDS: LEVOFLOXACIN IN DEXTROSE 5 % 750 MG/150 ML BAG IV SCH (15:27)
[2020-08-03] MEDS ORDERED: INSULIN LISPRO 100 UNITS/ML VIAL SC SCH (17:30)
[2020-08-03] MEDS ORDERED: LORazepam 2 MG/ML DISP.SYRIN IV PRN (19:09)
[2020-08-03] MEDS: MORPHINE SULFATE 4 MG/ML SYRG IV PRN ×3 (19:26→20:02)
--- NOTE | 2020-08-03 21:35 | DS ---
Discharge Summary - Provider Admitting Clinician: Emerson Edge Pronouncing Clinician: Emerson Edge - Date and Time Date of : 08/03/20 Time of : 20:38 - Diagnosis/Cause of (1) COVID-19 Problems: Acute (2) Hypoxia Problems: Resolved (3) GI bleed Problems: Suspected (4) Blood loss anemia Problems: Acute (5) AAA (abdominal aortic aneurysm) Problems: Chronic (6) HTN (hypertension) Problems: Chronic (7) GERD (gastroesophageal reflux disease) Problems: Chronic (8) Small bowel obstruction Problems: Suspected (9) Urinary retention Problems: Resolved (10) Constipation Problems: Resolved (11) Malnourished Problems: Acute - Summary Details (narrative): 80-year-old male who was admitted for hypoxia secondary to Covid pneumonia on 07/13/2020. Patient's clinical picture while here was up and down, some days he look like he was turning the corner and other days he look like he was deter iorating. Patient also had an upper GI bleed and required 2 units transfusion. Patient was treated with Decadron and Lovenox for greater than 10 days until his GI bleed happened and these were discontinued. Patient then was on Protonix drip for 2 days and IV Protonix after. Patient had no further bleeding (melenic stools and hematemesis) after the initial episode. Patient was treated for a ghosh spected GI infection for 7 days with Cipro and Flagyl. At the time his white count has been greater than 33 that trended down to 10. During his GI infection patient continued to require a combination of high flow oxygen via nasal cannula, nonrebreather mask, and CPAP. During this time patient's strength and nutritional status continued to deteriorate and it was decided that patient would benefit from TPN. Patient initially was tolerating p.o. fairly well but as he became more and more tired from findings infection his p.o. intake decreased until he was determined that he needed parenteral feeding. PICC line was replaced and he was started on TPN. On day of passing patient had decided that he was tired of all the different treatments and feeling "like crap "for the last 3 weeks and was trying to decide whether or not he wanted to go comfort measures. After rounded on him this morning, returned this evening to discuss this again and patient had made the decision to comfort measures only. His medications were stopped aside from morphine and Ativan which was given for respiratory distress and agitation. Patient passed roughly 1 after after starting these medicines at 2037 on 08/03/2020. His son was called and notified of his passing. Procedures Performed: none - Additional Data Confirmation of as documented by pronouncing clinician: no pulse, no heart sounds Family: contacted Practitioner(Attending/PCP) notified: Yes Was code activated: No Autopsy requested: No Superintendent [place] notified: No [employer] notified: No Advance Directives: No Hospice patient: No
[2020-08-03 22:15] VITALS: BP 0/0
[2020-08-04] MEDS ORDERED: MULTIVIT INFUSN ADULT K IV SCH ×4 (09:00)
[2020-08-04] MEDS ORDERED: POTASSIUM PHOS M BASIC D BASIC IV SCH ×4 (09:00)
[2020-08-04] MEDS ORDERED: [UNRECOGNIZED DRUG - OTHER] IV SCH ×4 (09:00)
[2020-08-05] MEDS ORDERED: [UNRECOGNIZED DRUG - OTHER] IV SCH ×4 (09:00)
[2020-08-05] MEDS ORDERED: POTASSIUM PHOS M BASIC D BASIC IV SCH ×4 (09:00)
[2020-08-05] MEDS ORDERED: MULTIVIT INFUSN ADULT K IV SCH ×4 (09:00)
== END 2020-08-03 20:38 | disposition expired | DRG 177 ==
LOC: SCU 22:46
PROVIDERS: ADMIT Family Medicine; ATTEND Family Medicine
DX: J96.01 Acute respiratory failure with hypoxia; K25.4 Chronic or unspecified gastric ulcer with hemorrhage; D62 Acute posthemorrhagic anemia; U07.1 COVID-19; K56.609 Unspecified intestinal obstruction, unspecified as to partial versus complete obstruction; I10 Essential (primary) hypertension; K59.01 Slow transit constipation; E46 Unspecified protein-calorie malnutrition; J12.89 Other viral pneumonia; R11.2 Nausea with vomiting, unspecified; R33.9 Retention of urine, unspecified; K21.9 Gastro-esophageal reflux disease without esophagitis; R53.1 Weakness; I71.4 Abdominal aortic aneurysm, without rupture